=== PATIENT | male | born 1935 | race Caucasian/White ===

== ENCOUNTER → 2016-06-09 | Outpatient (CLI) | payer MEDICARE, OTHER ==
[~2016-06-09] MED LIST: ASCO100061 PO; FLUT27.5 NAE; FRS/40 PO; FURO-85 PO; PANT40TA PO; RXC5 PO; SENNTAB23 PO; SIMV40TA2 PO
[2016-06-09 14:01] LABS: HEMATOCRIT 27.8 % (42-52); MEAN CORPUSCULAR HEMOGLOBIN 28.8 pg (25-34); MEAN PLATELET VOLUME 9.4 fL (7.4-10.4); PLATELET COUNT 303 K/uL (130-400); RED BLOOD COUNT 3.09 M/uL (4.7-6.1); WHITE BLOOD COUNT 8.79 K/uL (4.8-10.8)
[2016-06-09 14:15] LABS: ALT/SGPT 15 U/L (12-78); BLOOD UREA NITROGEN 36 mg/dl (7-18); BUN/CREATININE RATIO 23.7 (10-20); CALCIUM 9.4 mg/dl (8.5-10.1); CARBON DIOXIDE 23 mmol/L (21-32); CHLORIDE 105 mmol/L (98-107); GLUCOSE 114 mg/dl (70-99); POTASSIUM 3.9 mmol/L (3.5-5.1); SODIUM 140 mmol/L (136-145)
[2016-06-09 14:18] LABS: ALB/GLOB RATIO 0.6 (0.9-2); ALKALINE PHOSPHATASE 73 U/L (45-117); AST/SGOT 19 U/L (15-37)
== END | disposition home or self-care (01) ==
LOC: C.LABSPEC 10:52
PROVIDERS: ATTEND Internal Medicine Infectious Disease
DX: A41.01 Sepsis due to Methicillin susceptible Staphylococcus aureus (principal)

== ENCOUNTER → 2016-06-16 | Outpatient (CLI) | payer MEDICARE, OTHER ==
[2016-06-16 12:25] LABS: ALT/SGPT 15 U/L (12-78); AST/SGOT 16 U/L (15-37); BLOOD UREA NITROGEN 29 mg/dl (7-18); CALCIUM 9.1 mg/dl (8.5-10.1); CARBON DIOXIDE 26 mmol/L (21-32); CHLORIDE 103 mmol/L (98-107); GLUCOSE 93 mg/dl (70-99); POTASSIUM 4.2 mmol/L (3.5-5.1); SODIUM 139 mmol/L (136-145)
[2016-06-16 12:28] LABS: ALB/GLOB RATIO 0.8 (0.9-2); ALKALINE PHOSPHATASE 63 U/L (45-117); C-REACTIVE PROTEIN 1.21 mg/dl (0-0.29)
[2016-06-17 10:07] LABS: HEMATOCRIT 28.6 % (42-52); MEAN CELL VOLUME 92.6 fL (80-100); MEAN CORPUSCULAR HEMOGLOBIN 29.8 pg (25-34); MEAN CORPUSCULAR HGB CONC 32.2 g/dl (32-36); MEAN PLATELET VOLUME 10.2 fL (7.4-10.4); PLATELET COUNT 279 K/uL (130-400); RED BLOOD COUNT 3.09 M/uL (4.7-6.1); WHITE BLOOD COUNT 8.01 K/uL (4.8-10.8)
== END | disposition home or self-care (01) ==
LOC: C.LABSPEC 10:34
PROVIDERS: ATTEND Family Medicine
DX: Z51.81 Encounter for therapeutic drug level monitoring (principal); Z79.2 Long term (current) use of antibiotics

== ENCOUNTER → 2016-07-14 | Outpatient (CLI) | payer MEDICARE ==
[2016-07-14 13:15] VITALS: BP 144/75; PULSE 82; TEMP 36.7; O2SAT 95
--- NOTE | 2016-07-14 16:37 | Radiation Oncology Follow-Up ---
Radiation Oncology Follow-Up Date of Visit Jul 14, 2016. 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 Cook is a 81-year-old male without a family history of prostate cancer. He was found to have a rising prostatespecific antigen in 2008. On 03/25/2009 prostate-specific antigen was 11.94. Patient underwent ultrasound-guided prostate biopsies on 08/27/[address] Miller. 4 out of 12 biopsies were positive. Biopsy the left base was positive for prostatic adenocarcinoma [place] grade 3+4 involving 70% of the core specimen. Biopsies from the left lateral base was positive for high-grade PIN and adenocarcinoma Viki grade 3+5 involving 50% of the core sample. Biopsy from the left mid gland was positive for adenocarcinoma [place] grade 3+4 involving 70% of the core sample. Biopsy from the left lateral mid gland was positive for prostatic carcinoma [place] grade 3+3 involving 50% of the core sample with highgrade PIN. Remaining of the biopsies were benign. [id number]. Patient opted to proceed with radical prostatectomy robotic-assisted. This was performed by Dr. Estrada on 12/30/2009. No carcinoma was identified from the bladder neck excision or the right seminal vesicle excision. The prostate gland revealed adenocarcinoma poorly differentiated. The primary Viki pattern was 3 and a secondary pattern was 5 for a score of 8. The tumor involved 5.6% of the prostate gland with an estimated volume of 1.9 mm. There was no extra prostatic extension and no seminal vesicle extension. There was evidence of perineural invasion and blood/lymphatic vessel invasion. There was no regional lymph nodes sampled. The margins were uninvolved by tumor. The final stage was therefore a pT2a pNx. [id number]. The patient recovered well from surgery. His initial postoperative prostate- specific antigen on 04/29/2011 was undetectable at less than 0.01. On 04/27/2012 prostate-specific antigen remained undetectable at less than 0.02. On 01/2013 prostate-specific antigen less than 0.02. On 05/07/2014 prostate- specific antigen was 0.03. On 05/14/2015 unfortunately the prostate-specific antigen was 0.76. With this rise in prostate -specific antigen the patient is felt to have recurrence. A CT scan for staging purposes was obtained on 05/23/2015. This showed multiple simple cysts in the right kidneys and in the left kidney. There were no other evidence of recurrent disease area to 7 mm nodule was noted at the left base. Dr. Boone discussed these findings with the patient and recommended consideration of salvage radiation. She was kind enough to ask us to see him in referral. He completed salvage radiation therapy 09/09/2015. He received 7020 cGy. Hormonal suppression was provided to Dr. Tierney's office. He has one remaining injection that will be given 10/10/2015. Interim History He was unfortunately hospitalized for 2 weeks at the end of April. He was found to have sepsis. This was treated with antibiotic therapy and he steadily recovered. The suprapubic catheter continues to be needed. She did go to [place] and had a procedure to decrease scar tissue of the urethra. He required only one four-month injection of Lupron. His last PSA was 01/09/2016 and that was less than 0.010. The suprapubic catheter is changed once a month. This will be done tomorrow Dr. Boone office. Allergies Coded Allergies: Amoxicillin (Unverified Allergy, Unknown, DOESN'T REMEMBRR, 04/29/16) HAS TOLERATED MULTIPLE DOSES OF CEFAZOLIN DURING ADMISSION APRIL 2016 Clavulanic Acid (Unverified Allergy, Unknown, DOESN'T REMEMBRR, 04/24/16) Naproxen (Verified Allergy, Unknown, UNSURE, 04/29/16) Cefazolin (Verified Adverse Reaction, Severe, VOMITING BLOOD, 05/05/16) Home Medications Scheduled Ascorbic Acid (Ascorbic Acid), 1,000 MG PO BID Fluticasone Furoate (Veramyst), 2 SPRY CHACORTA DAILY Furosemide (Lasix), 40 MG PO Q2D Furosemide (Lasix), 20 MG PO Q2D Pantoprazole Sodium (Protonix), 1 TAB PO BID Simvastatin (Zocor), 40 MG PO QPM Scheduled PRN Oxycodone HCl (Oxycodone HCl), 5 MG PO QID PRN for Pain Sennosides-Docusate Sodium (Stool Softener), 1 TAB PO BID PRN for Constipation Review of Systems Gastrointestinal: Symptoms: Constipation GI Comments: occ constipation Oral: Symptoms: No Problems Respiratory: Symptoms: WNL Urinary: Symptoms: Espino Catheter Comments: supra pubic catheter , voids some on his own when straining Skin: Symptoms: No Problems Other Skin Symptoms: "has has a lot of skin cancer over the years " Physical Exam Vital Signs Date Time Temp Pulse Resp B/P Pulse Ox O2 Delivery O2 Flow Rate FiO2 07/14/16 13:15 36.7 82 20 144/75 95 Pain: Pain Onset: 16 Pain Duration: gets worse at times Side: Bilateral Patient Pain Scale: 0 - 10 Initial Pain Intensity: 0.0 Pain Description: Soreness Additional Comments: pinches General Appearance: no apparent distress Eyes: normal inspection, EOMI ENT: normal ENT inspection, hearing grossly normal Respiratory/Chest: lungs clear, no respiratory distress, no accessory muscle use Cardiovascular: regular rate, rhythm, no gallop, no murmur Abdomen: non tender, soft, + pertinent finding (superior catheter in place) Anal / Rectum: Normal sphincter tone. Prostate bed is flat. No rectal masses no rectal bleeding. Extremities: no pedal edema Neurologic/Psychiatric: no motor/sensory deficits, alert, normal mood/affect Skin: warm/dry Lymphatic: no adenopathy Laboratory Studies Test 04/24/16 11:45 04/24/16 11:55 04/24/16 11:58 04/24/16 12:30 Pro-B-Type Natriuretic Peptide 933 pg/ml (0-1800) Lipase 693 U/L (73-393) Procalcitonin 5.47 ng/mL (0-0.5) Thyroid Stimulating Hormone (TSH) 0.780 uIu/ml (0.300-4.500) POC Lactic Acid Venous 2.03 mmol/L (0.90-1.70) POC Hemoglobin 14.3 g/dl (14.0-18.0) POC Hematocrit 42 % (42-52) POC Sodium 124 mEq/L (135-144) POC Potassium 2.3 mEq/L (3.3-5.0) POC Chloride 85 mEq/L (101-112) POC Total CO2 30 mEq/l (24-31) POC Blood Urea Nitrogen 45 mg/dl (7-18) POC Creatinine 2.0 mg/dl (0.6-1.3) POC Glucose 141 mg/dl (70-99) POC Ionized Calcium (Earnest) 1.10 mmol/l (1.12-1.32) Urine Color DK YELLOW Urine Appearance CLOUDY (CLEAR) Urine pH 5.5 (4.5-7.5) Urine Specific [place] 1.019 (1.000-1.030) Urine Protein 3+ (NEG) Urine Glucose (UA) NEG (NEG) Urine Ketones TRACE (NEG) Urine Occult Blood 3+ (NEG) Urine Nitrite POS (NEG) Urine Bilirubin NEG (NEG) Urine Urobilinogen NEG (NEG) Urine Leukocyte Esterase SMALL (NEG) Urine WBC (Auto) 10-30 /hpf (0-5) Urine RBC (Auto) 5-10 /hpf (0-4) Urine Hyaline Casts (Auto) 1-5 /lpf (0-5) Urine Epithelial Cells (Auto) >30 /lpf (0-5) Urine Bacteria (Auto) 1+ (NEG) Urine Renal Epithelial Cells /lpf (0-5) Urine Crystals AMORPHOUS SEDIMENT (NONE Urine Pathogenic Casts 10-20 GRANULAR CASTS /lpf (0) Urine Yeast (Auto) (NONE PRSENT) Test 04/24/16 22:00 04/25/16 03:40 04/25/16 22:20 04/26/16 06:20 Urine Color ORANGE Urine Appearance CLOUDY (CLEAR) Urine pH 6.0 (4.5-7.5) Urine Specific [place] 1.023 (1.000-1.030) Urine Protein 3+ (NEG) Urine Glucose (UA) NEG (NEG) Urine Ketones TRACE (NEG) Urine Occult Blood 3+ (NEG) Urine Nitrite POS (NEG) Urine Bilirubin NEG (NEG) Urine Urobilinogen NEG (NEG) Urine Leukocyte Esterase SMALL (NEG) Urine WBC (Auto) >30 /hpf (0-5) Urine RBC (Auto) 10-30 /hpf (0-4) Urine Hyaline Casts (Auto) 5-10 /lpf (0-5) Urine Epithelial Cells (Auto) 10-20 /lpf (0-5) Urine Bacteria (Auto) NEG (NEG) Urine Crystals AMORPHOUS SEDIMENT (NONE Urine Pathogenic Casts See comments /lpf (0) Triglycerides Level 139 mg/dl (0-150) Cholesterol Level 106 mg/dl (0-200) HDL Cholesterol 24 mg/dl LDL Cholesterol, Calculated 54 mg/dl VLDL Cholesterol, Calculated 28 mg/dl Cholesterol/HDL Ratio 4.4 Lipase 210 U/L (73-393) Creatine Kinase MB 15.4 ng/ml (0.5-3.6) Creatine Kinase MB Ratio 0.4 (0-3.0) Troponin I 0.112 ng/ml (0-0.045) Echinocytes 1+ Test 04/27/16 14:17 04/27/16 18:00 04/28/16 07:34 04/28/16 15:55 Osmolality 275 mOsm/kg (280-300) Lactic Acid Level 2.2 mmol/L (0.4-2.0) 1.1 mmol/L (0.4-2.0) Urine Osmolality 524 mOms/kg (500-800) Urine Random Sodium 7 mEq/L Hepatitis A IgM Antibody NON-REACTIVE (NON-REACTIVE) Hepatitis B Surface Antigen NEG (NEG) Hepatitis B Core IgM Antibody NON-REACTIVE (NON-REACTIVE) Hepatitis C Antibody NEG (NEG) Test 04/29/16 15:20 04/30/16 05:18 05/01/16 03:40 05/03/16 05:09 Creatine Kinase MB 1.7 ng/ml (0.5-3.6) Creatine Kinase MB Ratio 1.0 (0-3.0) Troponin I < 0.015 ng/ml (0-0.045) Magnesium Level 2.0 mg/dl (1.8-2.4) Direct Bilirubin 0.4 mg/dl (0-0.2) 0.3 mg/dl (0-0.2) Red Blood Cell Morphology Unremarkable Phosphorus Level 5.4 mg/dl (2.5-4.9) Test 05/03/16 15:20 05/04/16 05:00 05/05/16 07:05 05/05/16 16:10 Magnesium Level 2.3 mg/dl (1.8-2.4) Phosphorus Level 5.5 mg/dl (2.5-4.9) PTT 59.7 SECONDS (21.0-31.0) Partial Thromboplastin Ratio 2.3 Gastric Fluid pH 3 Gastric Fluid Occult Blood POS (NEG) Stool Occult Blood POSITIVE (NEGATIVE) Test 05/06/16 06:40 05/07/16 06:18 05/08/16 06:40 05/26/16 11:30 Immature Granulocyte % (Auto) 1.4 % 0.5 % White Blood Count 11.74 K/uL (4.8-10.8) 8.18 K/uL (4.8-10.8) Red Blood Count 2.93 M/uL (4.7-6.1) 2.68 M/uL (4.7-6.1) Hemoglobin 8.5 g/dL (14.0-18.0) 7.8 g/dL (14.0-18.0) Hematocrit 25.6 % (42-52) 24.5 % (42-52) Mean Corpuscular Volume 87.4 fL (80-100) 91.4 fL (80-100) Mean Corpuscular Hemoglobin 29.0 pg (25-34) 29.1 pg (25-34) Mean Corpuscular Hemoglobin Concent 33.2 g/dl (32-36) 31.8 g/dl (32-36) Platelet Count 216 K/uL (130-400) 309 K/uL (130-400) Mean Platelet Volume 8.5 fL (7.4-10.4) 9.4 fL (7.4-10.4) Neutrophils (%) (Auto) 74.6 % 71.3 % Lymphocytes (%) (Auto) 15.6 % 14.9 % Monocytes (%) (Auto) 7.8 % 11.7 % Eosinophils (%) (Auto) 0.3 % 1.1 % Basophils (%) (Auto) 0.3 % 0.5 % Neutrophils # (Auto) 8.74 K/uL (1.4-6.5) 5.83 K/uL (1.4-6.5) Lymphocytes # (Auto) 1.83 K/uL (1.2-3.4) 1.22 K/uL (1.2-3.4) Monocytes # (Auto) 0.92 K/uL (0.11-0.59) 0.96 K/uL (0.11-0.59) Eosinophils # (Auto) 0.04 K/uL (0-0.5) 0.09 K/uL (0-0.5) Basophils # (Auto) 0.04 K/uL (0-0.2) 0.04 K/uL (0-0.2) Immature Granulocyte # (Auto) 0.17 K/uL (0.00-0.02) 0.04 K/uL (0.00-0.02) Red Blood Cell Morphology Unremarkable PTT 30.8 SECONDS (21.0-31.0) Partial Thromboplastin Ratio 1.2 Est Creatinine Clear Calc Drug Dose 50.1 ml/min 47.2 ml/min Prothrombin Time 12.0 SECONDS (9.0-12.0) 11.8 SECONDS (9.0-12.0) Prothrombin Time INR 1.1 (0.9-1.1) 1.1 (0.9-1.1) Test 06/09/16 12:30 06/16/16 11:45 06/17/16 11:45 07/14/16 13:57 White Blood Count 8.79 K/uL (4.8-10.8) 8.01 K/uL (4.8-10.8) Red Blood Count 3.09 M/uL (4.7-6.1) 3.09 M/uL (4.7-6.1) Hemoglobin 8.9 g/dL (14.0-18.0) 9.2 g/dL (14.0-18.0) Hematocrit 27.8 % (42-52) 28.6 % (42-52) Mean Corpuscular Volume 90.0 fL (80-100) 92.6 fL (80-100) Mean Corpuscular Hemoglobin 28.8 pg (25-34) 29.8 pg (25-34) Mean Corpuscular Hemoglobin Concent 32.0 g/dl (32-36) 32.2 g/dl (32-36) RDW Standard Deviation 50.5 fL (36.4-46.3) 52.3 fL (36.4-46.3) RDW Coefficient of Variation 15.4 % (11.5-14.5) 15.5 % (11.5-14.5) Platelet Count 303 K/uL (130-400) 279 K/uL (130-400) Mean Platelet Volume 9.4 fL (7.4-10.4) 10.2 fL (7.4-10.4) Erythrocyte Sedimentation Rate 46 mm/hr (0-14) 43 mm/hr (0-14) Sodium Level 140 mmol/L (136-145) 139 mmol/L (136-145) Potassium Level 3.9 mmol/L (3.5-5.1) 4.2 mmol/L (3.5-5.1) Chloride Level 105 mmol/L (98-107) 103 mmol/L (98-107) Carbon Dioxide Level 23 mmol/L (21-32) 26 mmol/L (21-32) Anion Gap 12.0 mmol/L (3-11) 10.0 mmol/L (3-11) Blood Urea Nitrogen 36 mg/dl (7-18) 29 mg/dl (7-18) Creatinine 1.50 mg/dl (0.60-1.40) 1.30 mg/dl (0.60-1.40) Estimated GFR () 50.2 59.7 Estimated GFR (Non- 43.3 51.5 BUN/Creatinine Ratio 23.7 (10-20) 22.0 (10-20) Random Glucose 114 mg/dl (70-99) 93 mg/dl (70-99) Calcium Level 9.4 mg/dl (8.5-10.1) 9.1 mg/dl (8.5-10.1) Total Bilirubin 0.4 mg/dl (0.2-1) 0.4 mg/dl (0.2-1) Aspartate Amino Transferase (AST) 19 U/L (15-37) 16 U/L (15-37) Alanine Aminotransferase (ALT) 15 U/L (12-78) 15 U/L (12-78) Alkaline Phosphatase 73 U/L (45-117) 63 U/L (45-117) Total Creatine Kinase 73 U/L (39-308) 71 U/L (39-308) C-Reactive Protein 3.30 mg/dl (0-0.29) 1.21 mg/dl (0-0.29) Total Protein 7.4 gm/dl (6.4-8.2) 7.2 gm/dl (6.4-8.2) Albumin 2.9 gm/dl (3.4-5.0) 3.1 gm/dl (3.4-5.0) Globulin 4.5 gm/dl (2.5-4.0) 4.1 gm/dl (2.5-4.0) Albumin/Globulin Ratio 0.6 (0.9-2) 0.8 (0.9-2) Prostate Specific Antigen < 0.010 ng/ml (0.000-4.000) Assessment & Plan PSA was drawn today. He'll be notified as to results. He'll see Dr. Boone tomorrow for the change of the suprapubic catheter. At times he is able to void on his own. I've asked him to review with her possible clamping of the tube intermittently to see if he can possibly void on his own. We asked him to return to our office in 1 year. He may called yesterday questions or concerns in the interim. Total Time In Follow-Up I spent 15 minutes speaking to the patient performing examination. I spent 15 minutes reviewing information and completing this note. Copy To Parker Duenas D.O.; Marcie Boone MD
== END | disposition home or self-care (01) ==
LOC: C.ONC 13:05
PROVIDERS: ATTEND Radiology Radiation Oncology
DX: C61 Malignant neoplasm of prostate (principal)

== ENCOUNTER → 2016-07-22 | Outpatient (CLI) | payer MEDICARE ==
--- NOTE | 2016-07-22 14:55 | DIAGNOSTIC IMAGING REPORT ---
THORACIC SPINE 3 VIEWS HISTORY: DORSALGIA, UNSPECIFIED COMPARISON: Chest CT 04/30/2016. FINDINGS: There is no fracture. No subluxation. Paraspinal soft tissues are unremarkable. Minimal levoscoliosis of the midthoracic spine. Paraspinal soft tissues are unremarkable. Mild to moderate degenerative disc disease at T8-T9 and within the lower thoracic spine. IMPRESSION: No fracture or subluxation within the thoracic spine. Mild to moderate degenerative disc disease within the mid to lower thoracic spine. Electronically signed by: Pranay Kaufman M.D. 07/22/2016 2:54 PM Dictated Date/Time: 07/22/2016 2:50 PM
--- NOTE | 2016-07-22 14:55 | DIAGNOSTIC IMAGING REPORT ---
L-SPINE MIN 4 VIEWS ROUTINE CLINICAL HISTORY: Dorsalgia. COMPARISON: Lumbar spine radiographs April 25, 2016. FINDINGS: An IVC filter is incidentally noted. This extensive atherosclerotic calcification of the abdominal aorta. There is mild levoscoliosis of the lumbar spine. No acute fracture is identified on this exam. Moderate multilevel degenerative disc disease and facet arthrosis is present. The appearance of the lumbar spine is similar to exam of April 25, 2016. Disc space narrowing, osteophytosis and vacuum disc phenomenon is noted at multiple levels. IMPRESSION: 1. No acute lumbar spine fracture or subluxation. 2. Moderate multilevel degenerative disc disease and facet arthrosis of the lumbar spine. No change since exam of April 25, 2016. Electronically signed by: Enrico Powell M.D. 07/22/2016 2:53 PM Dictated Date/Time: 07/22/2016 2:52 PM
== END | disposition home or self-care (01) ==
LOC: C.RAD1850 14:20
PROVIDERS: ATTEND Student in an Organized Health Care Education/Training Program
DX: M54.9 Dorsalgia, unspecified (principal); M51.36 Other intervertebral disc degeneration, lumbar region; M51.34 Other intervertebral disc degeneration, thoracic region

== ENCOUNTER → 2017-07-13 | Outpatient (CLI) | payer MEDICARE ==
[~2017-07-13] MED LIST changes: +LISI-725 PO; +NAPR1TAB9 PO; +POLY335019 PO; +POTA20TA16 PO; +VITACAP26
[2017-07-13 13:23] VITALS: BP 135/69; PULSE 73; TEMP 36.6; O2SAT 100
--- NOTE | 2017-07-13 14:42 | Radiation Oncology Follow-Up ---
Radiation Oncology Follow-Up Date of Visit Jul 13, 2017. Reason For Visit Annual follow-up Radiation Completion Date 09/09/15 Diagnosis (1) 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) Status: Resolved Onset Date: 08/27/2009 Stage: ll Permanent Comment: Status post completion of salvage radiation therapy 2015 received 7020 cGy Urethral stricture with acute urinary retention Status post suprapubic cystostomy Last Edited By: Rachel Thompson on Jan 09, 2016 16:14 History of Present Illness Mr. Cook is a 81-year-old male without a family history of prostate cancer. He was found to have a rising prostatespecific antigen in 2008. On 03/25/2009 prostate-specific antigen was 11.94. Patient underwent ultrasound-guided prostate biopsies on 08/27/[address] Miller. 4 out of 12 biopsies were positive. Biopsy the left base was positive for prostatic adenocarcinoma [place] grade 3+4 involving 70% of the core specimen. Biopsies from the left lateral base was positive for high-grade PIN and adenocarcinoma [place] grade 3+5 involving 50% of the core sample. Biopsy from the left mid gland was positive for adenocarcinoma [place] grade 3+4 involving 70% of the core sample. Biopsy from the left lateral mid gland was positive for prostatic carcinoma [place] grade 3+3 involving 50% of the core sample with highgrade PIN. Remaining of the biopsies were benign. [id number]. Patient opted to proceed with radical prostatectomy robotic-assisted. This was performed by Dr. Estrada on 12/30/2009. No carcinoma was identified from the bladder neck excision or the right seminal vesicle excision. The prostate gland revealed adenocarcinoma poorly differentiated. The primary Viki pattern was 3 and a secondary pattern was 5 for a score of 8. The tumor involved 5.6% of the prostate gland with an estimated volume of 1.9 mm. There was no extra prostatic extension and no seminal vesicle extension. There was evidence of perineural invasion and blood/lymphatic vessel invasion. There was no regional lymph nodes sampled. The margins were uninvolved by tumor. The final stage was therefore a pT2a pNx. [id number]. The patient recovered well from surgery. His initial postoperative prostate- specific antigen on 04/29/2011 was undetectable at less than 0.01. On 04/27/2012 prostate-specific antigen remained undetectable at less than 0.02. On 01/2013 prostate-specific antigen less than 0.02. On 05/07/2014 prostate- specific antigen was 0.03. On 05/14/2015 unfortunately the prostate-specific antigen was 0.76. With this rise in prostate -specific antigen the patient is felt to have recurrence. A CT scan for staging purposes was obtained on 05/23/2015. This showed multiple simple cysts in the right kidneys and in the left kidney. There were no other evidence of recurrent disease area to 7 mm nodule was noted at the left base. Dr. Boone discussed these findings with the patient and recommended consideration of salvage radiation. She was kind enough to ask us to see him in referral. He completed salvage radiation therapy 09/09/2015. He received 7020 cGy. Hormonal suppression was provided to Dr. Tierney's office. He has one remaining injection that will be given 10/10/2015. Interim History He continues to be followed closely by Dr. Boone. AUA evaluation and epic questionnaire were not completed. He has a suprapubic catheter. He is seen once a month for changing of the catheter. He has irregular bowel habits and this is unchanged for many years. He uses Mirilax on a as needed basis. He completed the six-month recommendation for hormone suppression. He has had recheck PSAs at Dr. Boone office. He had a PSA 05/19/2017 and that was less than 0.02. Allergies Coded Allergies: Amoxicillin (Unverified Allergy, Unknown, DOESN'T REMEMBRR, 04/29/16) HAS TOLERATED MULTIPLE DOSES OF CEFAZOLIN DURING ADMISSION APRIL 2016 Clavulanic Acid (Unverified Allergy, Unknown, DOESN'T REMEMBRR, 04/24/16) Naproxen (Verified Allergy, Unknown, UNSURE, 04/29/16) Cefazolin (Verified Adverse Reaction, Severe, VOMITING BLOOD, 05/05/16) Home Medications Scheduled Ascorbic Acid (Ascorbic Acid), 1,000 MG PO BID Fluticasone Furoate (Veramyst), 2 SPRY CHACORTA DAILY Furosemide (Lasix), 40 MG PO Q2D Furosemide (Lasix), 20 MG PO Q2D Lisinopril (Zestril), 20 MG PO DAILY Pantoprazole Sodium (Protonix), 1 TAB PO BID Polyethylene Glycol 3350 (Miralax), 17 GM PO DAILY Potassium Ext Rel (Klor-Con), 20 MEQ PO DAILY Simvastatin (Zocor), 40 MG PO QPM Scheduled PRN Naproxen (Aleve), 220 MG PO for Pain Miscellaneous Medications Vitamins C & E (Vitamin C) Review of Systems Gastrointestinal: Symptoms: WNL GI Comments: occ constipation Oral: Symptoms: No Problems Respiratory: Symptoms: WNL Urinary: Symptoms: Espino Catheter Comments: has a superpubic catheter Skin: Symptoms: No Problems Other Skin Symptoms: "has has a lot of skin cancer over the years " Physical Exam Vital Signs Date Time Temp Pulse Resp B/P (MAP) Pulse Ox O2 Delivery O2 Flow Rate FiO2 07/13/17 13:23 36.6 73 18 135/69 100 Fatigue: None General Appearance: no apparent distress Eyes: normal inspection, EOMI ENT: normal ENT inspection, hearing grossly normal Respiratory/Chest: lungs clear, no respiratory distress, no accessory muscle use Cardiovascular: regular rate, rhythm, no gallop, no murmur Abdomen: non tender, soft, no organomegaly Anal / Rectum: Decreased sphincter tone. External and internal hemorrhoids. Prostate bed is flat. There are no masses. There is no rectal bleeding. Extremities: no pedal edema Neurologic/Psychiatric: no motor/sensory deficits, alert, normal mood/affect Skin: warm/dry Pain Management Patient Reports Pain: Yes Side: Bilateral Pain Location: Toe Patient Preferred Pain Scale: 0 - 10 Initial Pain Intensity: 2.0 Pain Management Plan Pain level is low. This is managed with [id number] medications. There is no pain management required by our office. Laboratory Laboratory Results: were reviewed Laboratory Comments: Reviewed in the interim history. Pathology Pathology Results: not applicable Imaging Imaging Studies: not applicable Assessment & Plan Plan: Continue follow-up PSAs. He has a recheck point with Dr. Boone in October. He'll have a recheck PSA prior to that visit. Today we reviewed his PSA levels. We discussed that previously there would have been some effect on the level due to the hormone suppression. We asked him to return to our office in 1 year. He may call if he has any questions or concerns in the interim. Total Time In Follow-Up I spent 20 minutes speaking to the patient performing examination. I spent 15 minutes reviewing information in completing this note. Copy To Parker Duenas D.O.; Marcie Boone MD
== END | disposition home or self-care (01) ==
LOC: C.ONC 13:13
PROVIDERS: ATTEND Physician Assistant Medical
DX: Z08 Encounter for follow-up examination after completed treatment for malignant neoplasm (principal); Z92.3 Personal history of irradiation; Z85.46 Personal history of malignant neoplasm of prostate

== ENCOUNTER 2022-07-26 08:52 | Inpatient (IN) ==
--- NOTE | 2022-07-26 10:02 | CT Scan Report ---
CT SCAN OF THE BRAIN WITHOUT IV CONTRAST CLINICAL HISTORY: Difficulty with ambulation. COMPARISON STUDY: CT of the brain dated 02/04/2020. TECHNIQUE: Unenhanced axial CT scan of the brain is performed from the vertex to the skull base. A do se lowering technique was utilized adhering to the principles of ALARA. CT DOSE: 614.27 mGy.cm FINDINGS: Brain parenchyma: There is age-related involutional change noting mild subcortical and periventricula r microangiopathic disease. There is no hemorrhage, mass effect, or evidence of acute territorial isc hemia by CT criteria. Feliz-white matter differentiation is preserved. No extra-axial fluid collection is seen. Ventricles, sulci, cisterns: Prominent secondary to involutional change. Intracranial vasculature: There is atherosclerotic calcification of the cavernous carotid and vertebr al arteries. Calvarium: Unremarkable. Sinuses and mastoids: The visualized paranasal sinuses are clear. The mastoid air cells are well pneu matized. Cerumen is noted in the left external auditory canal. Orbits: The bony orbits are grossly intact. There are bilateral ocular lens implants. IMPRESSION: There is no hemorrhage, mass effect, or evidence of acute territorial ischemia by CT graeme madison. ACT 112: Negative or not required by law. Electronically signed by: Elver Xiao M.D. 07/26/2022 9:59 AM
[2022-07-26 10:05] LABS: Hematocrit (blood only) 40.4 % (42.0-52.0); Mean Corpuscular Hemoglobin 32.1 pg (25.0-34.0); Mean Corpuscular Hgb Conc 32.2 g/dL (32.0-36.0); Mean Corpuscular Volume 99.8 fL (80.0-100.0); Mean Platelet Volume 10.4 fL (9.4-12.4); Platelet Count 253 K/uL (130-400); RDW Coefficient of Variation 13.8 % (11.5-14.5); RDW Standard Deviation 50.1 fL (36.4-46.3); Red Blood Count 4.05 M/uL (4.70-6.10)
[2022-07-26 10:17] LABS: INR 1.1 (0.9-1.1); Prothrombin Time 11.3 Seconds (9.0-12.0)
[2022-07-26 10:19] LABS: Albumin Globulin Ratio 1.4 (0.9-2); Albumin Level 4.2 gm/dl (3.4-5.0); BUN Creatinine Ratio 22.5 (10-20); Bilirubin Direct 0.1 mg/dl (0-0.2); Bilirubin,Total 0.9 mg/dl (0.2-1.0); Calcium 9.3 mg/dl (8.5-10.1); Creatinine Clr Calc Pharmacy 22.5 ml/min; Est GFR (African American) 27.8 ml/min; Total Protein 7.2 gm/dl (6.0-8.3); Troponin I High Sensitivity 8.8 pg/ml (0-20)
--- NOTE | 2022-07-26 10:33 | XRay Report ---
TWO VIEW CHEST CLINICAL HISTORY: Generalized weakness. FINDINGS: PA and lateral chest radiographs are compared to study dated 02/04/2020 and correlated with chest CT dated 04/30/2016. The heart is enlarged noting atherosclerotic calcification of the thoracic aorta. The pulmonary vasculature is noncongested. Emphysema and chronic interstitial thickening is s imilar to previous. No airspace consolidation or pleural effusion is identified. Scarring/atelectasis is noted at the lung bases. There is no pneumothorax. The skeletal structures are osteopenic. The [place] thorax appears intact. An IVC filter is partially visualized in the upper abdomen. IMPRESSION: Cardiomegaly and emphysema with no acute cardiopulmonary abnormality identified. ACT 112: Negative or not required by law. Electronically signed by: Elver Xiao M.D. 07/26/2022 10:30 AM
[2022-07-26 10:52] LABS: Basophils # (auto) 0.39 K/uL (0-0.2); Basophils % (auto) 0.6 %; Eosinophils # (auto) 0.11 K/uL (0-0.50); Eosinophils % (auto) 0.2 %; Immature Granulocytes # (auto) 0.56 K/uL (0.01-0.20); Immature Granulocytes % (auto) 0.9 %; Lymphocytes % (auto) 63.2 %; Monocytes # (auto) 5.04 K/uL (0.11-0.59); Monocytes % (auto) 8.4 %; Neutrophils % (auto) 26.7 %; Polychromasia 1+; Smudge Cells Present
--- NOTE | 2022-07-26 11:06 | Ultrasound Report ---
ULTRASOUND LEFT LOWER EXTREMITY VENOUS CLINICAL HISTORY: Left leg pain and swelling. COMPARISON STUDY: Bilateral lower extremity venous ultrasound dated 04/24/2016 TECHNIQUE: Real-time, grayscale, and color Doppler sonography of the deep veins of the left lower ext remity was performed from the inguinal crease to the calf. Compression and augmentation were utilized . FINDINGS: There is occlusive deep venous thrombosis identified in the popliteal vein. This extends in the calf within one of the posterior tibial veins. The remaining visualized calf vessels appear bartlett nt. The common femoral and superficial femoral veins are patent and normally compressible. The greate r saphenous vein and the profunda femoris vein at the junction with the common femoral vein are clear . IMPRESSION: Occlusive deep venous thrombosis is seen within the popliteal vein. This extends into the calf. ACT 112: Negative or not required by law. Electronically signed by: Elver Xiao M.D. 07/26/2022 11:05 AM
--- NOTE | 2022-07-26 11:50 | History & Physical Report ---
Date of Service July 26, 2022 Assessment & Plan (1) Left leg DVT: Plan: Left leg DVT, acute 1 week of worsening left leg swelling and pain with weightbearing, found to have popliteal DVT with extension into the calf Patient has history of CLL and polycythemia. Increased coagulation risk 2/2 polycythemia Heparin GTT ordered Discussed with Dr. Morris, reasonable to target for a twice daily DOAC versus warfarin with bridge on discharge. Do not use once daily DOAC dosing Sensation and strength of the lower extremities are intact (2) BASIM (acute kidney injury): Plan: Creatinine baseline appears approximately 1.4, admitting creatinine 2.36 Patient usually avoids around 3000 mL overnight (does this because he drains his suprapubic bag once and usually almost fell again by morning) Last night patient with significantly decreased output, only 200 cc and elevated creatinine suggestive of ARF CT-A/P: 1. The inferior vena cava and iliac arteries appear hyperdense and are distended below the IVC filter with mild surrounding infiltration. These findings are highly suspicious for extensive pelvic deep venous thrombosis. Consider sonographic correlation.2. The kidneys demonstrate cortical atrophy and are without hydronephrosis.3. The bladder is decompressed around a suprapubic catheter. The wall appears thickened and there is surrounding infiltration. Correlate with urinalysis. 4. Mild cardiomegaly and emphysema.5. Cholelithiasis.6. Additional findings as above. IVC filter is below the level of the renal artery. Bladder is decompressed, no signs of obstruction. UA is pending. No renal enhancement. Unclear etiology of BASIM/ARF Nephrology consulted, anticoagulated for his clot as above, and received IVF. (3) [place] filter in place: Plan: Patient reports this was placed while he was septic in the ICU from a urinary tract infection and had complications with both clots and bleeding due to sepsis. Reports that outside of this he has never had any issues with bleeding or anemia. Patient with DVT as noted above, anticoagulation started. Risk of bleeding discussed with patient. (4) CLL (chronic lymphocytic leukemia): Plan: WBC 60.3, ANC 16, hemoglobin 13 Plt 253 Discussed with hematology/oncology and patient's outpatient oncologist. WBC is reasonable for patient, has not been requiring treatment and is unlikely to contribute significantly to viscosity at this level. As long as ANC level is not grossly elevated may continue to watch and have outpatient. No evidence of acute conversion at this time. (5) Polycythemia: Plan: Hemoglobin 13 on admission Continue hydroxyurea With increased risk for clots, being treated for DVT as above (6) H/O radical prostatectomy: Plan: With residual scar tissue and suprapubic catheter in place Suprapubic catheter draining light yellow urine, decreased urine output and BASIM/ARF as noted (7) Hypertension: Plan: Lisinopril held for ARF Amlodipine temporarily held for mild hypotension, resume tomorrow's normal (8) History of CVA (cerebrovascular accident): Plan: History of CVA with dysarthria and right lower extremity weakness at presentation. He is on Plavix monotherapy at this time. Reports that had right leg weakness which gradually improved and normalized over 1 year of therapy. No residual speech deficits. Plavix continued History of Present Illness Primary Care Provider: Parker Duenas DO Topher is an 87-year-old male with a past medical history of CLL, hypertension, hyperlipidemia, prostate cancer s/p prostatectomy, past DVT with Kaushal filter placement which was not removed subsequently, and CKD who presents with ARF and weakness. 1 week ago L left swollen, pain in thigh and calf. Was having pain spreading across lower waist and back over the next few days. Minimal pain sitting, more pain when trying to ambulate More fatigued over the last week This morning tried to walk across the room 'and damn near fell down' so he cam ein for evaluation Quit smoking 35 years ago No long trips/travel 6 years ago had sepsis with blood clots in both legs Has a kaushal filter, was not removed. Thinks was done with Dr. Cota Is not sure why they chose a filter instead of a anticoagulant No problems with bleeding. 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 Had a Stroke last january, no residual deficits. Presented with dysarthria and R weakness. R leg improved over a year, speech normalized. On plaavix after being flown to [place]. Has a history of CLL. Polycythemia and leukocytosis was noted while at [place]. Sees Dr. Morris and was placed on the hydroxyuria. has discussed this w/ Dr. Alexandra and unless was >200 pt reports was going to monitor. Reports has brisk drainage from his catheter bag which is usually emptied 1x overnight and nearly full again over the morning. normally ~3500mL output, haroon [place] had ~200cc of output overall overnight which is very unusual for him.Per pt norm of No fevers or chills. [place] a little chilly this AM but no shaking chills no night sweats no SoB, dyspnea, chest pain, or chest pressure Medical History: Reviewed Medications: Reviewed Surgical History: Reviewed Allergies: Reviewed Social History: Former smoker, no use in 35 yeras. No etoh. Code Status: DNR/DNI Allergies Allergy/AdvReac Type Severity Reaction Status Date / Time No Known Allergies Allergy Verified 07/26/22 10:59 Home Medications Medication Instructions Recorded Confirmed Type acetaminophen 650 mg 1,300 mg PO Q12H PRN Pain 02/04/20 07/26/22 History tablet,extended release ascorbic acid (vitamin C) 1,000 mg 1,000 mg PO BID 02/04/20 07/26/22 History tablet fluticasone propionate 50 2 spray intranasal QAM 02/04/20 07/26/22 History mcg/actuation nasal spray,suspension lisinopril 20 mg tablet 20 mg PO QAM 02/04/20 07/26/22 History amlodipine 2.5 mg tablet 2.5 mg PO HS 05/03/21 07/26/22 History clopidogrel 75 mg tablet 75 mg PO QAM 05/03/21 07/26/22 History folic acid 1 mg tablet 2 mg PO QAM 05/03/21 07/26/22 History hydroxyurea 500 mg capsule 1,000 mg PO QDL 05/03/21 07/26/22 History rosuvastatin 20 mg tablet 20 mg PO HS 05/03/21 07/26/22 History trospium 20 mg tablet 20 mg PO BID 05/03/21 07/26/22 History Past Med/Surg History Medical History (Updated 07/26/22 @ 12:34 by Dmitriy Mckay MD) Kaushal filter in place Hypertension Leukocytosis MSSA (methicillin susceptible Staphylococcus aureus) septicemia 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) (08/27/09) "Status post completion of salvage radiation therapy 09/09/2015 received 7020 cGy Urethral stricture with acute urinary retention Status post suprapubic cystostomy" On 10/11/15 10:22 Rachel Jarrell Donna wrote "Status post completion of salvage radiation therapy 09/09/2015 received 7020 cGy Urethral stricture with acute urinary retention Plan for suprapubic cystostomy" On 09/13/15 13:18 Rachel Thompson wrote "Status post completion of salvage radiation therapy 09/09/2015 received 7020 cGy" Pulmonary emboli Rising PSA level Sepsis Skin cancer Surgical History H/O radical prostatectomy No history of previous surgery S/P appendectomy Family History Other No significant family history Social History Smoking Status: Former smoker Feels Safe at Home: Yes Seatbelt Use: always Review of Systems Review of Systems: All systems reviewed & are unremarkable except as noted in HPI & below Physical Exam Physical Exam: General: A&Ox3. NAD. Cooperative. HEENT: Atraumatic, normocephalic. PERLAA. Pulm: CTAB A&P. -wheezes, -rales, -rhonchi. Symmetrical chest rise. No increased work of breathing. No respiratory distress. Cardiac: RRR, -mrg. Radial pulses intact and symmetrical. Abdominal: Nontender, nondistended, soft. BS present. Ext: LLE pitting edema. Sensation intact to soft touch bilat. Results & Data Results & Data ([facility]) Vital Signs (Past 12 Hours) Vital Signs Temp Pulse Resp BP Pulse Ox O2 Del Method 07/26/22 09:38 77 07/26/22 09:04 36.6 C 81 20 118/51 L 98 Room Air PG Care Time/CCT Total # of Minutes Spent Total Time Spent with Patient: Total time spent is greater than 50% in coordination of care (as documented) at patient's floor/unit and/or counseling patient: Coding Level of Care Code 64364 INT INP/OBS CARE 3/75MIN Diagnoses Left leg DVT I82.402 BASIM (acute kidney injury) N17.[address] Z95.828 CLL (chronic lymphocytic leukemia) C91.10 Polycythemia D75.1 H/O radical prostatectomy Z90.79 Hypertension I10 History of CVA (cerebrovascular accident) Z86.73
[2022-07-26] MEDS ORDERED: Heparin IV Adult Wt-Based Standard WITH Bolus Protocol IV STA (12:21)
--- NOTE | 2022-07-26 12:22 | Emergency Department Note ---
History of Present Illness General Chief complaint: Leg Injury/Pain Stated complaint: BILAT. LEG PAIN Time Seen by Provider: 07/26/22 08:57 History of Present Illness Maximum Pain Intensity: 6 This 87-year-old male with a history of CVA, previous DVTs/PE, polycythemia vera, CLL, Kaushal filter placement, elevated lipids, hypertension, sepsis, prostate cancer, and skin cancer, presents today by ambulance, for evaluation of generalized weakness. He states that over the last week he has had increasing weakness. He states that he cannot walk from a chair in the front of his house, to the back of his house. He could prior to the last week. He denies any pain. No shortness of breath. He does note swelling in the left leg that developed approximately 4-5 days ago. He believes it has become worse. He does have a history of clot after sepsis, and does have a Paton filter in place. Denies any redness or warmth to the left leg. No calf pain. He denies any chest pain, shortness of breath, nausea, vomiting, or abdominal pain. No dizziness, headache, or fatigue. He describes a belt-like pattern of pain in his low back that has developed over the last several days. No prior history of similar discomfort. He is a somewhat poor historian, but does state that he s ees Dr. Mroris for management of CLL. He believes he has an appointment next month. He recently had 6 suspicious lesions removed from his skin and states they are healing fine as far as he is aware. There were 3 on his scalp and 3 on his back. His accompanies him today. He arrives by EMS service. Home Medications Medication Instructions Recorded Confirmed Type acetaminophen 650 mg 1,300 mg PO Q12H PRN Pain 02/04/20 07/26/22 History tablet,extended release ascorbic acid (vitamin C) 1,000 mg 1,000 mg PO BID 02/04/20 07/26/22 History tablet fluticasone propionate 50 2 spray intranasal QAM 02/04/20 07/26/22 History mcg/actuation nasal spray,suspension lisinopril 20 mg tablet 20 mg PO QAM 02/04/20 07/26/22 History amlodipine 2.5 mg tablet 2.5 mg PO HS 05/03/21 07/26/22 History clopidogrel 75 mg tablet 75 mg PO QAM 05/03/21 07/26/22 History folic acid 1 mg tablet 2 mg PO QAM 05/03/21 07/26/22 History hydroxyurea 500 mg capsule 1,000 mg PO QDL 05/03/21 07/26/22 History rosuvastatin 20 mg tablet 20 mg PO HS 05/03/21 07/26/22 History trospium 20 mg tablet 20 mg PO BID 05/03/21 07/26/22 History Allergies Allergy/AdvReac Type Severity Reaction Status Date / Time No Known Allergies Allergy Verified 07/26/22 10:59 Past Med/Surg History Medical History Kaushal filter in place Hypertension Leukocytosis MSSA (methicillin susceptible Staphylococcus aureus) septicemia 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) (08/27/09) "Status post completion of salvage radiation therapy 09/09/2015 received 7020 cGy Urethral stricture with acute urinary retention Status post suprapubic cystostomy" On 10/11/15 10:22 Rachel Thompson wrote "Status post completion of salvage radiation therapy 09/09/2015 received 7020 cGy Urethral stricture with acute urinary retention Plan for suprapubic cystostomy" On 09/13/15 13:18 Rachel Thompson wrote "Status post completion of salvage radiation therapy 09/09/2015 received 7020 cGy" Pulmonary emboli Rising PSA level Sepsis Skin cancer Surgical History H/O radical prostatectomy No history of previous surgery S/P appendectomy Family History Other No significant family history Social History Smoking Status: Former smoker Hx Alcohol Use: Yes Alcohol type: wine Hx Substance Use: No Beater Room Helper Required: No Beliefs That Will Affect Care: None Current Living Situation: Spouse Feels Safe at Home: Yes Seatbelt Use: always Assistive Devices: Cane and Walker Review of Systems A total of 10 systems reviewed and were otherwise negative Physical Exam Vital Signs Vital Signs - 24 hr 07/26/22 09:04 07/26/22 09:22 07/26/22 09:38 Temperature 36.6 C Temperature Source Oral Oral Pulse Rate 81 77 Pulse Rate [Right Brachial] Pulse Rhythm Regular Pulse Rhythm [Right Brachial] Pulse Strength Normal Pulse Strength [Right Brachial] Respiratory Rate 20 Respiratory Effort / Characteristics Non-Labored Respiratory Depth Normal Respiratory Pattern Regular Blood Pressure 118/51 L Blood Pressure [Right Arm] Blood Pressure Mean 73 Blood Pressure Mean [Right Arm] Blood Pressure Position Lying Blood Pressure Position [Right Arm] Pulse Oximetry 98 Oxygen Delivery Method Room Air Sepsis Recent Fever Within 48 Hours No Sepsis New/Unexplained Change in Mental Status No Sepsis Action Taken by Nursing No Action Required 07/26/22 13:00 Temperature 36.8 C Temperature Source Oral Pulse Rate Pulse Rate [Right Brachial] 85 Pulse Rhythm Pulse Rhythm [Right Brachial] Regular Pulse Strength Pulse Strength [Right Brachial] Normal Respiratory Rate 19 Respiratory Effort / Characteristics Non-Labored Spontaneous Respiratory Depth Normal Respiratory Pattern Regular Blood Pressure Blood Pressure [Right Arm] 128/56 L Blood Pressure Mean Blood Pressure Mean [Right Arm] 80 Blood Pressure Position Blood Pressure Position [Right Arm] Lying Pulse Oximetry 95 Oxygen Delivery Method Room Air Sepsis Recent Fever Within 48 Hours Sepsis New/Unexplained Change in Mental Status Sepsis Action Taken by Nursing General: Frail, elderly white male, in no acute distress. Laying on the bed. Alert and oriented. Conversive. Skin: Warm and dry with fair turgor. No rashes. No ecchymosis or erythema. He has 3 circular healing wounds on his back from previous excisions. He also has 3 circular healing wounds present on his scalp from previous excisions. The patient is not diaphoretic. No abrasions. Left leg has visible edema compared to the right leg. This is generalized through the calf and thigh. No warmth or palpable cord. Mild discomfort with palpation of the calf. HEENT: Normocephalic atraumatic. Eyes PERRLA, EOMI. No conjunctiva or scleral injection. Nares patent bilaterally without turbinate enlargement. No significant drainage. No epistaxis. Oropharynx without erythema or exudate. Uvula midline, oral mucosa moist. No lesions present. Heart: Heart RRR. No MGR. Peripheral pulses are 2+ for dorsalis pedis. Posterior tibial pulse is 1+ on the left compared to 2+ on the right. Lungs: Lungs are clear to auscultation. No crackles rhonchi or wheezing. Good air movement. The patient is able to take a deep breath. Abdomen: Abdomen was inspected, auscultated, and palpated. Bowel sounds present x 4. Soft, nontender to palpation. No hepato-splenomegaly. No masses noted. No rebound. Musculoskeletal: Gross motor function of the upper and lower extremities is intact and unremarkable. He has no discomfort with palpation over the right leg. Above-stated mildly positive Homans test on the left. He has no discomfort with palpation over his thoracic or lumbar spine. He describes soreness across his belt line posteriorly, but I cannot make it worse by p alpation or motion. Neurologic: Gross sensation is intact across the upper and lower extremities by soft touch. Course Administered Medications Discontinued Medications Acetaminophen (Acetaminophen 325 Mg Tab) 650 mg PO Q4H PRN PRN Reason: Pain Stop: 08/26/22 04:27 Last Admin: 07/27/22 05:10 Dose: 650 mg Documented By: KAHLIL Ascorbic Acid (Ascorbic Acid 500 Mg Tab) 1,000 mg PO BID [facility] Stop: 08/25/22 20:59 Last Admin: 07/27/22 07:18 Dose: 1,000 mg Documented By: [id number] Admin: 07/26/22 20:14 Dose: 1,000 mg Documented By: ANDREA Clopidogrel Bisulfate (Clopidogrel Bisulfate 75 Mg Tab) [address] [facility] Stop: 08/26/22 08:59 Last Admin: 07/27/22 07:18 Dose: 75 mg Documented By: [id number] Folic Acid (Folic Acid 1 Mg Tab) [address] [facility] Stop: 08/26/22 08:59 Last Admin: 07/27/22 07:19 Dose: 2 mg Documented By: [id number] Heparin Sodium (Porcine) (Heparin Sod (Porcine) 1000 Unit/Ml) 6,000 units IV NOW ONE Stop: 07/26/22 12:42 Last Admin: 07/26/22 13:03 Dose: 6,000 units Documented By: GGG Co-signed By: AM Heparin Sodium/Dextrose (Heparin Sodium/Dextrose) 25,000 units in 500 mls @ 27 mls/hr IV .[id number] [facility]; Protocol Stop: 08/25/22 12:44 Last Admin: 07/27/22 07:17 Dose: 1,350 units/hr, 27 mls/hr Documented By: [id number] Co-signed By: ANNETTA Titration: 07/27/22 07:17 Dose: 1,350 units/hr, 27 mls/hr Documented By: [id number] Co-signed By: ANNETTA Titration: 07/27/22 07:14 Dose: 1,350 units/hr, 27 mls/hr Documented By: [id number] Co-signed By: SONYA Titration: 07/26/22 20:50 Dose: 1,350 units/hr, 27 mls/hr Documented By: KAHLIL Co-signed By: ANDREA Admin: 07/26/22 13:06 Dose: 1,350 units/hr, 27 mls/hr Documented By: CELINA Co-signed By: LEANDRA Parenteral Electrolytes (Normosol-R) 1,000 mls @ 80 mls/hr IV .[id number] [facility] Stop: 07/27/22 02:29 Last Infusion: 07/26/22 19:13 Dose: 0 mls/hr Documented By: Admin: 07/26/22 14:27 Dose: 80 mls/hr Documented By: CELINA Sodium Chloride (Nss 1000ml) 500 mls @ 999 mls/hr IV .[id number] ONE Stop: 07/26/22 14:23 Last Infusion: 07/26/22 15:04 Dose: 0 mls/hr Documented By: Admin: 07/26/22 14:28 Dose: 999 mls/hr Documented By: CELINA Parenteral Electrolytes (Normosol-R) 1,000 mls @ 80 mls/hr IV .[id number] [facility] Stop: 08/25/22 17:27 Last Admin: 07/27/22 04:26 Dose: 80 mls/hr Documented By: Infusion: 07/27/22 03:50 Dose: 0 mls/hr Documented By: Admin: 07/26/22 17:43 Dose: 80 mls/hr Documented By: KIMBER Rosuvastatin Calcium (Rosuvastatin Calcium 20 Mg Tab) 20 mg PO HS [facility] Stop: 08/25/22 20:59 Last Admin: 07/26/22 20:14 Dose: 20 mg Documented By: ANDREA Sodium Chloride (Sodium Chloride 0.65% Na Soln 45 Ml ([place])) 1 sprays NA PRN PRN PRN Reason: Dryness Stop: 08/25/22 20:21 Last Admin: 07/26/22 20:30 Dose: 1 sprays Documented By: ANDREA Medical Decision Making Differential Diagnosis DVT, PE, anemia, electrolyte abnormality, dehydration, renal insufficiency, ACS, [place] Medical Records Attestation: I reviewed the patient's medical records. Home Medications Current Medication List: was personally reviewed by me Laboratory Data CBC, chemistry panel, UA, INR, lactate, and COVID test were obtained. CBC shows elevation of his white count at 16.3. H&H are mildly low at 13.0 and 40.4. Smudge cells and polychromasia are present. INR is 1.1. Sodium low at 129. Potassium and chloride are normal. BUN is elevated at 53 and creatinine is elevated at 2.36. These have changed from his previous lab baseline. LFTs are normal. Lactate is normal at 0.7. COVID test is negative. UA was ordered along with cultures. Results are pending. 07/26/22 09:10 07/26/22 09:30 Lab Results 07/26/22 07/26/22 07/26/22 Range/Units 09:10 09:30 09:30 WBC 60.30 H* (4.8-10.8) K/ul RBC 4.05 L (4.70-6.10) M/uL Hgb 13.0 L (14.0-18.0) g/dl Hct 40.4 L (42.0-52.0) % MCV 99.8 (80.0-100.0) fL MCH 32.1 (25.0-34.0) pg MCHC 32.2 (32.0-36.0) g/dL RDW Std Deviation 50.1 H (36.4-46.3) fL RDW Coeff of Albertina 13.8 (11.5-14.5) % Plt Count 253 (130-400) K/uL MPV 10.4 (9.4-12.4) fL Immature Gran % (Auto) 0.9 % Neut % (Auto) 26.7 % Lymph % (Auto) 63.2 % [place] % (Auto) 8.4 % Eos % (Auto) 0.2 % Baso % (Auto) 0.6 % Neut # (Auto) 16.10 H (1.40-6.50) K/uL Lymph # (Auto) 38.10 H (1.2-3.4) K/uL [place] # (Auto) 5.04 H (0.11-0.59) K/uL Eos # (Auto) 0.11 (0-0.50) K/uL Baso # (Auto) 0.39 H (0-0.2) K/uL Immature Gran # (Auto) 0.56 H (0.01-0.20) K/uL Smudge Cells Present Polychromasia 1+ PT 11.3 (9.0-12.0) Seconds INR 1.1 (0.9-1.1) Sodium 129 L (136-145) mmol/L Potassium 5.0 (3.5-5.1) mmol/L Chloride 98 (98-107) mmol/L Carbon Dioxide 21 (21-32) mmol/L Anion Gap 10 (3-11) BUN 53 H (6-23) mg/dl Creatinine 2.36 H (0.6-1.4) mg/dl Est Cr Clr Drug Dosing 22.5 ml/min Est GFR ( Amer) 27.8 ml/min Est GFR (Non-Af Amer) 24.0 ml/min BUN/Creatinine Ratio 22.5 H (10-20) Glucose 121 H (70-99(Fasting)) mg/dl Osmolality (280-300) mOsm/kg Lactate Calcium 9.3 (8.5-10.1) mg/dl Total Bilirubin 0.9 (0.2-1.0) mg/dl Direct Bilirubin 0.1 (0-0.2) mg/dl AST 25 (13-39) U/L ALT 15 (7-52) U/L Alkaline Phosphatase 52 (34-104) U/L Troponin I High Sens 8.8 (0-20) pg/ml Total Protein 7.2 (6.0-8.3) gm/dl Albumin 4.2 (3.4-5.0) gm/dl Globulin 3.0 (2.5-4.0) gm/dl Albumin/Globulin Ratio 1.4 (0.9-2) SARS-CoV-2, RNA, NAAT (NEGATIVE) 07/26/22 07/26/22 07/26/22 Range/Units 09:31 11:45 12:20 WBC (4.8-10.8) K/ul RBC (4.70-6.10) M/uL Hgb (14.0-18.0) g/dl Hct (42.0-52.0) % MCV (80.0-100.0) fL MCH (25.0-34.0) pg MCHC (32.0-36.0) g/dL RDW Std Deviation (36.4-46.3) fL RDW Coeff of Albertina (11.5-14.5) % Plt Count (130-400) K/uL MPV (9.4-12.4) fL Immature Gran % (Auto) % Neut % (Auto) % Lymph % (Auto) % [place] % (Auto) % Eos % (Auto) % Baso % (Auto) % Neut # (Auto) (1.40-6.50) K/uL Lymph # (Auto) (1.2-3.4) K/uL [place] # (Auto) (0.11-0.59) K/uL Eos # (Auto) (0-0.50) K/uL Baso # (Auto) (0-0.2) K/uL Immature Gran # (Auto) (0.01-0.20) K/uL Smudge Cells Polychromasia PT (9.0-12.0) Seconds INR (0.9-1.1) Sodium (136-145) mmol/L Potassium (3.5-5.1) mmol/L Chloride (98-107) mmol/L Carbon Dioxide (21-32) mmol/L Anion Gap (3-11) BUN (6-23) mg/dl Creatinine (0.6-1.4) mg/dl Est Cr Clr Drug Dosing ml/min Est GFR ( Amer) ml/min Est GFR (Non-Af Amer) ml/min BUN/Creatinine Ratio (10-20) Glucose (70-99(Fasting)) mg/dl Osmolality 292 (280-300) mOsm/kg Lactate Cancelled Calcium (8.5-10.1) mg/dl Total Bilirubin (0.2-1.0) mg/dl Direct Bilirubin (0-0.2) mg/dl AST (13-39) U/L ALT (7-52) U/L Alkaline Phosphatase (34-104) U/L Troponin I High Sens (0-20) pg/ml Total Protein (6.0-8.3) gm/dl Albumin (3.4-5.0) gm/dl Globulin (2.5-4.0) gm/dl Albumin/Globulin Ratio (0.9-2) SARS-CoV-2, RNA, NAAT NEGATIVE (NEGATIVE) Imaging Data My Impression: Chest x-ray obtained today was interpreted by me and read by radiology. Patient has no acute cardiopulmonary changes. He has chronic emphysema and cardiomegaly changes. No pneumothorax. The IVC filter is partially visualized. CT scan imaging of the head was also obtained today due to his weakness. This was also interpreted by me and read by radiology. No acute findings are noted. No hemorrhage, mass effect, or fluid collection. Ultrasound obtained today of the left lower extremity was positive for DVT within the popliteal vein. CT scan imaging of the abdomen pelvis was also obtained given his kidney injury. This was also reviewed by me and read by radiology. The inferior vena cava and iliac arteries appear hyperdense and are distended below the IVC filter with mild surrounding infiltration. These are suspicious for extensive pelvic DVT. The kidneys are without hydronephrosis. Bladder is decompressed around the suprapubic catheter. The wall is thickened. There is surrounding infiltration. Possibility of infection exist. Cholelithiasis is present. No lytic or blastic lesions are noted in the bones. Prostate is surgically absent. No cortez al calculi are identified. No ureteral stones are seen. Radiologist's Impression: Chest X-Ray 07/26/22 09:10 TWO VIEW CHEST CLINICAL HISTORY: Generalized weakness. FINDINGS: PA and lateral chest radiographs are compared to study dated 02/04/2020 and correlated with chest CT dated 04/30/2016. The heart is enlarged noting atherosclerotic calcification of the thoracic aorta. The pulmonary vasculature is noncongested. Emphysema and chronic interstitial thickening is similar to previous. No airspace consolidation or pleural effusion is identified. Scarring/atelectasis is noted at the lung bases. There is no pneumothorax. The skeletal structures are osteopenic. The bony thorax appears intact. An IVC filter is partially visualized in the upper abdomen. IMPRESSION: Cardiomegaly and emphysema with no acute cardiopulmonary abnormality identified. ACT 112: Negative or not required by law. Electronically signed by: Elver Xiao M.D. 07/26/2022 10:[address] 07/26/22 09:10 CT SCAN OF THE BRAIN WITHOUT IV CONTRAST CLINICAL HISTORY: Difficulty with ambulation. COMPARISON STUDY: CT of the brain dated 02/04/2020. TECHNIQUE: Unenhanced axial CT scan of the brain is performed from the vertex to the skull base. A dose lowering technique was utilized adhering to the principles of ALARA. CT DOSE: 614.27 mGy.cm FINDINGS: Brain parenchyma: There is age-related involutional change noting mild subcortical and periventricular microangiopathic disease. There is no hemorrhage, mass effect, or evidence of acute territorial ischemia by CT criteria. Feliz-white matter differentiation is preserved. No extra-axial fluid collection is seen. Ventricles, sulci, cisterns: Prominent secondary to involutional change. Intracranial vasculature: There is atherosclerotic calcification of the cavernous carotid and vertebral arteries. Calvarium: Unremarkable. Sinuses and mastoids: The visualized paranasal sinuses are clear. The mastoid air cells are well pneumatized. Cerumen is noted in the left external auditory canal. Orbits: The bony orbits are grossly intact. There are bilateral ocular lens implants. IMPRESSION: There is no hemorrhage, mass effect, or evidence of acute territorial ischemia by CT criteria. ACT 112: Negative or not required by law. Electronically signed by: Elver Xiao M.D. 07/26/2022 9:59 AM Venous Doppler Study 07/26/22 09:11 ULTRASOUND LEFT LOWER EXTREMITY VENOUS CLINICAL HISTORY: Left leg pain and swelling. COMPARISON STUDY: Bilateral lower extremity venous ultrasound dated 04/24/2016 TECHNIQUE: Real-time, grayscale, and color Doppler sonography of the deep veins of the left lower extremity was performed from the inguinal crease to the calf. Compression and augmentation were utilized. FINDINGS: There is occlusive deep venous thrombosis identified in the popliteal vein. This extends in the calf within one of the posterior tibial veins. The remaining visualized calf vessels appear patent. The common femoral and superficial femoral veins are patent and normally compressible. The greater saphenous vein and the profunda femoris vein at the junction with the common femoral vein are clear. IMPRESSION: Occlusive deep venous thrombosis is seen within the popliteal vein. This extends into the calf. ACT 112: Negative or not required by law. Electronically signed by: Elver Xiao M.D. 07/26/2022 11:05 AM Abdomen/Pelvis CT 07/26/22 11:35 CT SCAN OF THE ABDOMEN AND PELVIS WITHOUT IV CONTRAST CLINICAL HISTORY: Acute renal insufficiency. Decreased urine output COMPARISON STUDY: Abdominal CT dated 05/03/2021. TECHNIQUE: CT scan of the abdomen and pelvis is performed from the lung bases to the proximal femora. Images are reviewed in the axial, sagittal, and coronal planes. IV contrast was not administered for this examination. A dose lowering technique was utilized adhering to the principles of ALARA. CT DOSE: 458.34 mGy.cm FINDINGS: Lung bases: The heart is heart is mildly enlarged and without pericardial effusion. The coronary arteries are densely calcified. There is a small hiatal hernia. Emphysematous change is noted. There is bibasilar scarring/atelectasis. No airspace consolidation or pleural effusion is identified. There are bilateral fat-containing Bochdalek hernias. Liver: The unenhanced liver is normal in size, contour, and attenuation. There is no intrahepatic biliary ductal dilatation. Gallbladder: There are calcified gallstones with no CT evidence of acute cholecystitis. Spleen: The spleen is mildly enlarged measuring 13.8 cm in length. Pancreas: Unremarkable. Adrenal glands: Unremarkable. Kidneys: The unenhanced kidneys demonstrate moderate cortical atrophy and are and without hydronephrosis. No renal calculi are identified and no ureteral stone is seen. Numerous bilateral renal cysts measure up to 4.0 cm. A 1.4 cm indeterminant lesion arising from the posterior interpolar right kidney on #137 is unchanged from 202 and may represent a complex cyst. Abdominal vasculature: There is advanced atherosclerotic calcification and mild ectasia of the abdominal aorta. An infrarenal IVC filter is in place. The inferior vena cava and iliac veins below the stent appear expanded and hyperdense with surrounding infiltration. This suggests thrombosis. Bowel: There is no bowel obstruction. The appendix is not identified and reported surgically absent. Peritoneum: There is no intraperitoneal free air or abdominal ascites. There is a fat-containing umbilical hernia. Lymphadenopathy: None. Pelvic viscera: The bladder is decompressed around a suprapubic catheter. The bladder wall appears thickened and there is surrounding inflammation. The prostate gland is surgically absent. There is nonspecific presacral edema. Skeletal structures: The skeletal structures are osteopenic. Moderate lumbosacral spondylosis is observed. No lytic or blastic lesions are seen. IMPRESSION: 1. The inferior vena cava and iliac arteries appear hyperdense and are distended below the IVC filter with mild surrounding infiltration. These findings are highly suspicious for extensive pelvic deep venous thrombosis. Consider sonographic correlation. 2. The kidneys demonstrate cortical atrophy and are without hydronephrosis. 3. The bladder is decompressed around a suprapubic catheter. The wall appears thickened and there is surrounding infiltration. Correlate with urinalysis. 4. Mild cardiomegaly and emphysema. 5. Cholelithiasis. 6. Additional findings as above. ACT 112: Negative or not required by law. Electronically signed by: Elver Xiao M.D. 07/26/2022 12:55 PM ECG Data Additional Comments: EKG obtained today was reviewed with Dr. Dhillon, and shows a normal sinus rhythm with a rate of 79. When compared to his EKG from April 2021, PACs are no longer present. Blood Pressure Blood Pressure Findings: Normal blood pressure MDM Narrative Patient was evaluated in room C12. Conservative care measures were discussed. IV was established. Labs were obtained. He was placed on a cardiac technician and remained in normal sinus rhythm with a rate in the low to mid 80s. No ectopy was noted. White count is significantly elevated compared to his baseline. While he normally has an elevated white count due to the CLL and polycythemia vera, he is nearly double at over 60. H&H are unremarkable. Smudge cells and polychromasia are present. INR is normal at 1.1. BUN and creatinine are significantly elevated compared to his normal. BUN is 53 with creatinine 2.36. Sodium is low at 129. He appears to be in acute renal failure. UA was ordered along with urine culture. Results are pending. CT scan imaging of the head, abdomen, and pelvis was obtained. Head films were unremarkable. Abdominal films show extensive pelvic DVTs. Chest x-ray was also obtained. This was unremarkable for acute changes. Ultrasound of the left leg was obtained and was positive for DVT. I did discuss the findings with the patient and his . Because of his numerous abnormalities, I did recommend admission. Patient and his are in agreement. [facility] hospitalist service was consulted. Please see Dr. Mckay's note for final management. The patient remained stable while in the ED and did not require any further intervention at this time. Patient was seen in conjunction with Dr. Dhillon, who also evaluated the patient and concurred with today's diagnosis and treatment plan. Impression & Plan BASIM (acute kidney injury), Left leg DVT Discharge Plan Visit Data Chief Complaint: Leg Injury/Pain Stated Complaint: BILAT. LEG PAIN ED Provider: Javi Dhillon ED Midlevel Provider: Srinivas Barton Discharge Problem: BASIM (acute kidney injury), Left leg DVT Patient Disposition: Admitted As Inpatient Discharge Instructions Interventions: ED Discharge Assessment Last Done: 07/26/22 17:04
[2022-07-26] MEDS ORDERED: HEPARIN SOD (PORCINE) 1000 UNIT/ML IV ONE (12:41)
--- NOTE | 2022-07-26 12:57 | CT Scan Report ---
CT SCAN OF THE ABDOMEN AND PELVIS WITHOUT IV CONTRAST CLINICAL HISTORY: Acute renal insufficiency. Decreased urine output COMPARISON STUDY: Abdominal CT dated 05/03/2021. TECHNIQUE: CT scan of the abdomen and pelvis is performed from the lung bases to the proximal femora. Images are reviewed in the axial, sagittal, and coronal planes. IV contrast was not administered for this examination. A dose lowering technique was utilized adhering to the principles of ALARA. CT DOSE: 458.34 mGy.cm FINDINGS: Lung bases: The heart is heart is mildly enlarged and without pericardial effusion. The coronary rashi candelario are densely calcified. There is a small hiatal hernia. Emphysematous change is noted. There is b ibasilar scarring/atelectasis. No airspace consolidation or pleural effusion is identified. There are bilateral fat-containing Bochdalek hernias. Liver: The unenhanced liver is normal in size, contour, and attenuation. There is no intrahepatic penelope iary ductal dilatation. Gallbladder: There are calcified gallstones with no CT evidence of acute cholecystitis. Spleen: The spleen is mildly enlarged measuring 13.8 cm in length. Pancreas: Unremarkable. Adrenal glands: Unremarkable. Kidneys: The unenhanced kidneys demonstrate moderate cortical atrophy and are and without hydronephro sis. No renal calculi are identified and no ureteral stone is seen. Numerous bilateral renal cysts me asure up to 4.0 cm. A 1.4 cm indeterminant lesion arising from the posterior interpolar right kidney on #137 is unchanged from 202 and may represent a complex cyst. Abdominal vasculature: There is advanced atherosclerotic calcification and mild ectasia of the abdomi nal aorta. An infrarenal IVC filter is in place. The inferior vena cava and iliac veins below the truman nt appear expanded and hyperdense with surrounding infiltration. This suggests thrombosis. Bowel: There is no bowel obstruction. The appendix is not identified and reported surgically absent. Peritoneum: There is no intraperitoneal free air or abdominal ascites. There is a fat-containing umbi lical hernia. Lymphadenopathy: None. Pelvic viscera: The bladder is decompressed around a suprapubic catheter. The bladder wall appears th ickened and there is surrounding inflammation. The prostate gland is surgically absent. There is nons pecific presacral edema. Skeletal structures: The skeletal structures are osteopenic. Moderate lumbosacral spondylosis is obse rved. No lytic or blastic lesions are seen. IMPRESSION: 1. The inferior vena cava and iliac arteries appear hyperdense and are distended below the IVC filter with mild surrounding infiltration. These findings are highly suspicious for extensive pelvic deep v enous thrombosis. Consider sonographic correlation. 2. The kidneys demonstrate cortical atrophy and are without hydronephrosis. 3. The bladder is decompressed around a suprapubic catheter. The wall appears thickened and there is surrounding infiltration. Correlate with urinalysis. 4. Mild cardiomegaly and emphysema. 5. Cholelithiasis. 6. Additional findings as above. ACT 112: Negative or not required by law. Electronically signed by: Elver Xiao M.D. 07/26/2022 12:55 PM
[2022-07-26] MEDS: HEPARIN SODIUM/DEXTROSE 25,000 UNITS/500 ML BAG IV SCH (13:06)
[2022-07-26] MEDS ORDERED: SODIUM CHLORIDE 0.9% 1000ML 500 ML IV ONE (13:53)
[2022-07-26] MEDS ORDERED: NORMOSOL-R 1,000 ML IV SCH (14:00)
[2022-07-26 14:47] LABS: Appearance Urine Cloudy (Clear); Bacteria Urine Automated 1+ (Negative); Bilirubin Urine Negative (Negative); Blood Urine Negative (Negative); Color Urine Yellow; Glucose Urine UA Negative (Negative); Ketones Urine Trace (Negative); Leukocyte Esterase Urine 2+ (Negative); Nitrite Urine Negative (Negative); Protein Urine 2+ (Negative); Urobilinogen Urine Negative (Negative); WBC Urine Automated >30 /hpf (0-5)
[2022-07-26 15:11] LABS: RBC Urine Automated 0-4 /hpf (0-4)
[2022-07-26] MEDS: NORMOSOL-R 1,000 ML IV SCH (17:43)
[2022-07-26 19:31] LABS: Urine Chloride < 15 mmol/L; Urine Potassium 54.3 mmol/L; Urine Sodium 12 mmol/L
[2022-07-26] MEDS: ASCORBIC ACID 500 MG TAB PO SCH (20:14)
[2022-07-26 20:18] LABS: Partial Thromboplastin Ratio 2.4
[2022-07-26] MEDS ORDERED: SODIUM CHLORIDE 0.65% NA SOLN 45 ML (OCEAN) PRN (20:22)
[2022-07-26 20:39] LABS: Partial Thromboplastin Time 66.3 Seconds (21.0-31.0)
[2022-07-26] MEDS ORDERED: ROSUVASTATIN CALCIUM 20 MG TAB PO SCH (21:00)
[2022-07-27] MEDS: NORMOSOL-R 1,000 ML IV SCH (04:26)
[2022-07-27] MEDS ORDERED: ACETAMINOPHEN 325 MG TAB PO PRN (04:28)
[2022-07-27 06:34] LABS: BUN Creatinine Ratio 24.8 (10-20); Calcium 8.9 mg/dl (8.5-10.1); Creatinine Clr Calc Pharmacy 25.7 ml/min; Est GFR (African American) 32.8 ml/min; Est GFR (Non-African American) 28.3 ml/min
[2022-07-27 06:40] LABS: Hematocrit (blood only) 37.1 % (42.0-52.0); Hemoglobin 11.7 g/dl (14.0-18.0); Mean Corpuscular Hemoglobin 31.3 pg (25.0-34.0); Mean Corpuscular Hgb Conc 31.5 g/dL (32.0-36.0); Mean Corpuscular Volume 99.2 fL (80.0-100.0); Mean Platelet Volume 10.6 fL (9.4-12.4); Nucleated RBC # (auto) 0.02 K/uL (0-0.12); Platelet Count 246 K/uL (130-400); RDW Coefficient of Variation 13.7 % (11.5-14.5); RDW Standard Deviation 50.1 fL (36.4-46.3); Red Blood Count 3.74 M/uL (4.70-6.10); White Blood Count 55.06 K/ul (4.8-10.8)
[2022-07-27 07:00] LABS: Partial Thromboplastin Ratio 2.2
[2022-07-27 07:07] LABS: Partial Thromboplastin Time 60.8 Seconds (21.0-31.0)
[2022-07-27] MEDS: HEPARIN SODIUM/DEXTROSE 25,000 UNITS/500 ML BAG IV SCH (07:17)
[2022-07-27] MEDS: ASCORBIC ACID 500 MG TAB PO SCH (07:18)
[2022-07-27 07:37] LABS: Basophils # (auto) 0.37 K/uL (0-0.2); Basophils % (auto) 0.7 %; Eosinophils # (auto) 0.13 K/uL (0-0.50); Eosinophils % (auto) 0.2 %; Immature Granulocytes # (auto) 0.49 K/uL (0.01-0.20); Immature Granulocytes % (auto) 0.9 %; Lymphocytes % (auto) 63.4 %; Monocytes % (auto) 10.2 %; Neutrophils # (auto) 13.57 K/uL (1.40-6.50); Neutrophils % (auto) 24.6 %; Smudge Cells Present
--- NOTE | 2022-07-27 08:44 | Electrocardiogram Report ---
Test Reason : Blood Pressure : / mmHG Vent. Rate : 079 BPM Atrial Rate : 079 BPM P-R Int : 178 ms QRS Dur : 128 ms QT Int : 384 ms P-R-T Axes : 013 037 045 degrees QTc Int : 440 ms Normal sinus rhythm Right bundle branch block Abnormal ECG When compared with ECG of 03-MAY-2021 20:22, Premature atrial complexes are no longer Present Confirmed by Diomedes Meng ([id number]) on 07/27/2022 8:43:46 AM Referred By: REFERRED SELF Confirmed By:Jorge Meng
--- NOTE | 2022-07-27 08:53 | Nephrology Consultation ---
Date of Consultation July 27, 2022 History of Present Illness Reason for Consultation: BASIM/CKD Requesting Physician: Sarthak Kinsey MD Attending Physician: Sarthak Kinsey MD History of Present Illness Mr. Topher Cook is an 87 year-old male with chronic kidney disease. Baseline creatinine ~1.6-1.7 mg/dL. 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 CKD can be attributed to microvascular disease and BASIM. There is symmetric bilateral cortical atrophy on CT. There is no evidence of renal obstruction on CT scan. Urine studies on admission are notable for +2 protein, +2 LE, >30 WBC, no RBC's. Urine sodium 12 mmol/L. The patient presented to [facility] ER with a chief complaint of LLE edema. He also reported some ambulatory dysfunction, including pain and discomfort in the leg. He did not fall but reported a near fall prompting evaluation. Evaluation revealing a popliteal DVT to the calf. Laboratory evaluation notable for serum creatinine elevated at 2.2 mg/dL. Sodium 129 mmol/L and potassium 5.0 mmol/L. On review of systems, Topher reported decreased urine output. The admitting hospitalist found him to be euvolemic to slightly volume depleted. Lisinopril was held. IV saline x 1 L provided followed by maintenance Normosol infusion. I discussed the case with Dr. Mckay yesterday evening. This morning a code blue was called. The patient was bleeding from his forehead and unresponsive. He was found to be in PEA arrest and DNR/DNI was respected. The hospitalist team was present and his was contacted by Dr. Kinsey. Consultation not completed due to patient . Allergies Allergy/AdvReac Type Severity Reaction Status Date / Time No Known Allergies Allergy Verified 07/26/22 10:59 Home Medications Medication Instructions Recorded Confirmed Type acetaminophen 650 mg 1,300 mg PO Q12H PRN Pain 02/04/20 07/26/22 History tablet,extended release ascorbic acid (vitamin C) 1,000 mg 1,000 mg PO BID 02/04/20 07/26/22 History tablet fluticasone propionate 50 2 spray intranasal QAM 02/04/20 07/26/22 History mcg/actuation nasal spray,suspension lisinopril 20 mg tablet 20 mg PO QAM 02/04/20 07/26/22 History amlodipine 2.5 mg tablet 2.5 mg PO HS 05/03/21 07/26/22 History clopidogrel 75 mg tablet 75 mg PO QAM 05/03/21 07/26/22 History folic acid 1 mg tablet 2 mg PO QAM 05/03/21 07/26/22 History hydroxyurea 500 mg capsule 1,000 mg PO QDL 05/03/21 07/26/22 History rosuvastatin 20 mg tablet 20 mg PO HS 05/03/21 07/26/22 History trospium 20 mg tablet 20 mg PO BID 05/03/21 07/26/22 History Patient History Medical History [place] filter in place Hypertension Leukocytosis MSSA (methicillin susceptible Staphylococcus aureus) septicemia 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) (08/27/09) "Status post completion of salvage radiation therapy 09/09/2015 received 7020 cGy Urethral stricture with acute urinary retention Status post suprapubic cystostomy" On 10/11/15 10:22 Rachel Thompson wrote "Status post completion of salvage radiation therapy 09/09/2015 received 7020 cGy Urethral stricture with acute urinary retention Plan for suprapubic cystostomy" On 09/13/15 13:18 Rachel Thompson wrote "Status post completion of salvage radiation therapy 09/09/2015 received 7020 cGy" Pulmonary emboli Rising PSA level Sepsis Skin cancer Surgical History H/O radical prostatectomy No history of previous surgery S/P appendectomy Family History Other No significant family history Social History Smoking Status: Former smoker Hx Alcohol Use: Yes Alcohol type: wine Hx Substance Use: No Wheel Polisher Required: No Beliefs That Will Affect Care: None Current Living Situation: Spouse Feels Safe at Home: Yes Seatbelt Use: always Assistive Devices: Cane and Walker Results & Data ([facility]) Vital Signs (Past 12 Hours) Vital Signs Temp Pulse Pulse Resp BP Pulse Ox O2 Del Method 07/27/22 07:50 37.1 C 81 14 143/75 H 93 Room Air 07/27/22 07:03 82 07/27/22 03:05 37.2 C 95 H 16 129/68 91 Room Air 07/26/22 23:20 86 07/26/22 22:56 37.4 C 84 16 113/62 91 Room Air Laboratory Results Laboratory Results - last 24 hr 07/26/22 07/26/22 07/26/22 09:10 09:30 09:30 WBC 60.30 H* RBC 4.05 L Hgb 13.0 L Hct 40.4 L MCV 99.8 MCH 32.1 MCHC 32.2 RDW Std Deviation 50.1 H RDW Coeff of Albertina 13.8 Plt Count 253 MPV 10.4 Immature Gran % (Auto) 0.9 Neut % (Auto) 26.7 Lymph % (Auto) 63.2 [place] % (Auto) 8.4 Eos % (Auto) 0.2 Baso % (Auto) 0.6 Neut # (Auto) 16.10 H Lymph # (Auto) 38.10 H [place] # (Auto) 5.04 H Eos # (Auto) 0.11 Baso # (Auto) 0.39 H Immature Gran # (Auto) 0.56 H Absolute Nucleated RBC Smudge Cells Present Polychromasia 1+ PT 11.3 INR 1.1 APTT PTT Ratio Sodium 129 L Potassium 5.0 Chloride 98 Carbon Dioxide 21 Anion Gap 10 BUN 53 H Creatinine 2.36 H Est Cr Clr Drug Dosing 22.5 Est GFR ( Amer) 27.8 Est GFR (Non-Af Amer) 24.0 BUN/Creatinine Ratio 22.5 H Glucose 121 H Osmolality Lactate Calcium 9.3 Total Bilirubin 0.9 Direct Bilirubin 0.1 AST 25 ALT 15 Alkaline Phosphatase 52 Troponin I High Sens 8.8 Total Protein 7.2 Albumin 4.2 Globulin 3.0 Albumin/Globulin Ratio 1.4 Urine Color Urine Appearance Urine pH Ur Specific [place] Urine Protein Urine Glucose (UA) Urine Ketones Urine Blood Urine Nitrite Urine Bilirubin Urine Urobilinogen Ur Leukocyte Esterase Urine WBC (Auto) Urine RBC (Auto) U Hyaline Cast (Auto) U Epithel Cells (Auto) Urine Bacteria (Auto) Urine Osmolality Urine Sodium Urine Potassium Urine Chloride SARS-CoV-2, RNA, NAAT 07/26/22 07/26/22 07/26/22 09:31 11:45 12:20 WBC RBC Hgb Hct MCV MCH MCHC RDW Std Deviation RDW Coeff of Albertina Plt Count MPV Immature Gran % (Auto) Neut % (Auto) Lymph % (Auto) [place] % (Auto) Eos % (Auto) Baso % (Auto) Neut # (Auto) Lymph # (Auto) [place] # (Auto) Eos # (Auto) Baso # (Auto) Immature Gran # (Auto) Absolute Nucleated RBC Smudge Cells Polychromasia PT INR APTT PTT Ratio Sodium Potassium Chloride Carbon Dioxide Anion Gap BUN Creatinine Est Cr Clr Drug Dosing Est GFR ( Amer) Est GFR (Non-Af Amer) BUN/Creatinine Ratio Glucose Osmolality 292 Lactate Cancelled Calcium Total Bilirubin Direct Bilirubin AST ALT Alkaline Phosphatase Troponin I High Sens Total Protein Albumin Globulin Albumin/Globulin Ratio Urine Color Urine Appearance Urine pH Ur Specific [place] Urine Protein Urine Glucose (UA) Urine Ketones Urine Blood Urine Nitrite Urine Bilirubin Urine Urobilinogen Ur Leukocyte Esterase Urine WBC (Auto) Urine RBC (Auto) U Hyaline Cast (Auto) U Epithel Cells (Auto) Urine Bacteria (Auto) Urine Osmolality Urine Sodium Urine Potassium Urine Chloride SARS-CoV-2, RNA, NAAT NEGATIVE 07/26/22 07/26/22 07/26/22 12:46 14:20 14:20 WBC RBC Hgb Hct MCV MCH MCHC RDW Std Deviation RDW Coeff of Albertina Plt Count MPV Immature Gran % (Auto) Neut % (Auto) Lymph % (Auto) [place] % (Auto) Eos % (Auto) Baso % (Auto) Neut # (Auto) Lymph # (Auto) [place] # (Auto) Eos # (Auto) Baso # (Auto) Immature Gran # (Auto) Absolute Nucleated RBC Smudge Cells Polychromasia PT INR APTT PTT Ratio Sodium Potassium Chloride Carbon Dioxide Anion Gap BUN Creatinine Est Cr Clr Drug Dosing Est GFR ( Amer) Est GFR (Non-Af Amer) BUN/Creatinine Ratio Glucose Osmolality Lactate 0.7 Calcium Total Bilirubin Direct Bilirubin AST ALT Alkaline Phosphatase Troponin I High Sens Total Protein Albumin Globulin Albumin/Globulin Ratio Urine Color Urine Appearance Urine pH Ur Specific [place] Urine Protein Urine Glucose (UA) Urine Ketones Urine Blood Urine Nitrite Urine Bilirubin Urine Urobilinogen Ur Leukocyte Esterase Urine WBC (Auto) Urine RBC (Auto) U Hyaline Cast (Auto) U Epithel Cells (Auto) Urine Bacteria (Auto) Urine Osmolality 463 L Urine Sodium 12 Urine Potassium 54.3 Urine Chloride < 15 SARS-CoV-2, RNA, NAAT 07/26/22 07/26/22 07/27/22 14:25 19:17 05:51 WBC RBC Hgb Hct MCV MCH MCHC RDW Std Deviation RDW Coeff of Albertina Plt Count MPV Immature Gran % (Auto) Neut % (Auto) Lymph % (Auto) [place] % (Auto) Eos % (Auto) Baso % (Auto) Neut # (Auto) Lymph # (Auto) [place] # (Auto) Eos # (Auto) Baso # (Auto) Immature Gran # (Auto) Absolute Nucleated RBC Smudge Cells Polychromasia PT INR APTT 66.3 H* 60.8 H* PTT Ratio 2.4 2.2 Sodium Potassium Chloride Carbon Dioxide Anion Gap BUN Creatinine Est Cr Clr Drug Dosing Est GFR ( Amer) Est GFR (Non-Af Amer) BUN/Creatinine Ratio Glucose Osmolality Lactate Calcium Total Bilirubin Direct Bilirubin AST ALT Alkaline Phosphatase Troponin I High Sens Total Protein Albumin Globulin Albumin/Globulin Ratio Urine Color Yellow Urine Appearance Cloudy A Urine pH 5.0 Ur Specific [place] 1.020 Urine Protein 2+ H Urine Glucose (UA) Negative Urine Ketones Trace H Urine Blood Negative Urine Nitrite Negative Urine Bilirubin Negative Urine Urobilinogen Negative Ur Leukocyte Esterase 2+ H Urine WBC (Auto) >30 H Urine RBC (Auto) 0-4 U Hyaline Cast (Auto) 1-5 U Epithel Cells (Auto) 10-20 H Urine Bacteria (Auto) 1+ H Urine Osmolality Urine Sodium Urine Potassium Urine Chloride SARS-CoV-2, RNA, NAAT 07/27/22 07/27/22 05:51 05:51 WBC 55.06 H* RBC 3.74 L Hgb 11.7 L Hct 37.1 L MCV 99.2 MCH 31.3 MCHC 31.5 L RDW Std Deviation 50.1 H RDW Coeff of Albertina 13.7 Plt Count 246 MPV 10.6 Immature Gran % (Auto) 0.9 Neut % (Auto) 24.6 Lymph % (Auto) 63.4 [place] % (Auto) 10.2 Eos % (Auto) 0.2 Baso % (Auto) 0.7 Neut # (Auto) 13.57 H Lymph # (Auto) 34.90 H [place] # (Auto) 5.60 H Eos # (Auto) 0.13 Baso # (Auto) 0.37 H Immature Gran # (Auto) 0.49 H Absolute Nucleated RBC 0.02 Smudge Cells Present Polychromasia PT INR APTT PTT Ratio Sodium 129 L Potassium 5.0 Chloride 100 Carbon Dioxide 22 Anion Gap 7 BUN 51 H Creatinine 2.06 H D Est Cr Clr Drug Dosing 25.7 Est GFR ( Amer) 32.8 Est GFR (Non-Af Amer) 28.3 BUN/Creatinine Ratio 24.8 H Glucose 114 H Osmolality Lactate Calcium 8.9 Total Bilirubin Direct Bilirubin AST ALT Alkaline Phosphatase Troponin I High Sens Total Protein Albumin Globulin Albumin/Globulin Ratio Urine Color Urine Appearance Urine pH Ur Specific [place] Urine Protein Urine Glucose (UA) Urine Ketones Urine Blood Urine Nitrite Urine Bilirubin Urine Urobilinogen Ur Leukocyte Esterase Urine WBC (Auto) Urine RBC (Auto) U Hyaline Cast (Auto) U Epithel Cells (Auto) Urine Bacteria (Auto) Urine Osmolality Urine Sodium Urine Potassium Urine Chloride SARS-CoV-2, RNA, NAAT Diagnostic Findings Abdomen/Pelvis CT 07/26/22 WITHOUT IV CONTRAST FINDINGS: Lung bases: The heart is heart is mildly enlarged and without pericardial effusion. The coronary arteries are densely calcified. There is a small hiatal hernia. Emphysematous change is noted. There is bibasilar scarring/atelectasis. No airspace consolidation or pleural effusion is identified. There are bilateral fat-containing Bochdalek hernias. Liver: The unenhanced liver is normal in size, contour, and attenuation. There is no intrahepatic biliary ductal dilatation. Gallbladder: There are calcified gallstones with no CT evidence of acute cholecystitis. Spleen: The spleen is mildly enlarged measuring 13.8 cm in length. Pancreas: Unremarkable. Adrenal glands: Unremarkable. Kidneys: The unenhanced kidneys demonstrate moderate cortical atrophy and are and without hydronephrosis. No renal calculi are identified and no ureteral stone is seen. Numerous bilateral renal cysts measure up to 4.0 cm. A 1.4 cm indeterminant lesion arising from the posterior interpolar right kidney on #137 is unchanged from 2021 and may represent a complex cyst. Abdominal vasculature: There is advanced atherosclerotic calcification and mild ectasia of the abdominal aorta. An infrarenal IVC filter is in place. The inferior vena cava and iliac veins below the stent appear expanded and hyperdense with surrounding infiltration. This suggests thrombosis. Bowel: There is no bowel obstruction. The appendix is not identified and reported surgically absent. Peritoneum: There is no intraperitoneal free air or abdominal ascites. There is a fat-containing umbilical hernia. Lymphadenopathy: None. Pelvic viscera: The bladder is decompressed around a suprapubic catheter. The bladder wall appears thickened and there is surrounding inflammation. The prostate gland is surgically absent. There is nonspecific presacral edema. Skeletal structures: The skeletal structures are osteopenic. Moderate yeny mbosacral spondylosis is observed. No lytic or blastic lesions are seen. IMPRESSION: 1. The inferior vena cava and iliac arteries appear hyperdense and are distended below the IVC filter with mild surrounding infiltration. These findings are highly suspicious for extensive pelvic deep venous thrombosis. Consider sonographic correlation. 2. The kidneys demonstrate cortical atrophy and are without hydronephrosis. 3. The bladder is decompressed around a suprapubic catheter. The wall appears thickened and there is surrounding infiltration. Correlate with urinalysis. 4. Mild cardiomegaly and emphysema. 5. Cholelithiasis. PG Care Time/CCT Total # of Minutes Spent Total Time Spent with Patient: Total time spent is greater than 50% in coordination of care (as documented) at patient's floor/unit and/or counseling patient: Coding Diagnoses
[2022-07-27] MEDS ORDERED: FOLIC ACID 1 MG TAB PO SCH (09:00)
[2022-07-27] MEDS ORDERED: CLOPIDOGREL BISULFATE 75 MG TAB PO SCH (09:00)
--- NOTE | 2022-07-27 09:51 | Death Pronouncement Note ---
Date of Service July 27, 2022 Pronouncement Note Admission Date July 26, 2022 Date and Time of Date of : 07/27/22 Time of : 09:29 Preliminary Cause of (1) Bradycardia: Contributing Factors DVT in the setting of CLL & polycythemia Additional Data Confirmation of : no pulse, no respirations, no heart sounds and pupils fixed and dilated Pronouncement Performed By: Resident Physician Family: contacted Additional persons at bedside: cafeteria worker Attending/PCP notified?: Yes Attending physician: Sarthak Kinsey MD Was code activated?: Yes (Patient was DNR/DNI -- no CPR administered) Supervising Physician Co-Signing Physician Notes Attending attestation Pt seen and examined in concert with Dr. Manrique. In agreement with the documented findings as noted in the resident documentation with any exceptions or additions as noted here. Resident Activity Tracking Resident Involvement: Resident Care Provided Care Provided: Adult Hospital Medicine
--- NOTE | 2022-07-27 09:54 | Discharge Summary ---
Date of Service July 27, 2022 Admission HPI Per Admitting Provider Topher is an 87-year-old male with a past medical history of CLL, hypertension, hyperlipidemia, prostate cancer s/p prostatectomy, past DVT with Kaushal filter placement which was not removed subsequently, and CKD who presents with ARF and weakness. 1 week ago L left swollen, pain in thigh and calf. Was having pain spreading across lower waist and back over the next few days. Minimal pain sitting, more pain when trying to ambulate More fatigued over the last week This morning tried to walk across the room 'and damn near fell down' so he cam ein for evaluation Quit smoking 35 years ago No long trips/travel 6 years ago had sepsis with blood clots in both legs Has a kaushal filter, was not removed. Thinks was done with Dr. Cota Is not sure why they chose a filter instead of a anticoagulant No problems with bleeding. 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 Had a Stroke last january, no residual deficits. Presented with dysarthria and R weakness. R leg improved over a year, speech normalized. On plaavix after being flown to [place]. Has a history of CLL. Polycythemia and leukocytosis was noted while at [place]. Sees Dr. Morris and was placed on the hydroxyuria. has discussed this w/ Dr. Morris and unless was >200 pt reports was going to monitor. Reports has brisk drainage from his catheter bag which is usually emptied 1x overnight and nearly full again over the morning. normally ~3500mL output, haroon [place]en[place] had ~200cc of output overall overnight which is very unusual for him.Per pt norm of No fevers or chills. [place] a little chilly this AM but no shaking chills no night sweats no SoB, dyspnea, chest pain, or chest pressure Medical History: Reviewed Medications: Reviewed Surgical History: Reviewed Allergies: Reviewed Social History: Former smoker, no use in 35 yeras. No etoh. Code Status: DNR/DNI Principal Diagnosis Bradycardia in the setting of DVT with CLL & polycythemia Discharge Exam see note per senior resident Discharge Data Allergies Allergy/AdvReac Type Severity Reaction Status Date / Time No Known Allergies Allergy Verified 07/26/22 10:59 Consultations 07/26/22 11:47 ED Decision to Admit Stat 07/26/22 17:28 Consult Nephrology Routine Ordered Studies 07/26/22 09:10 CT head/brain wo con Stat 07/26/22 09:11 US venous doppler LE LT Urgent 07/26/22 11:35 CT Abd and Pelvis [CT abd pelvis wo con] Stat Laboratory Results WBC 55.06 K/ul (4.8-10.8) H* 07/27/22 05:51 RBC 3.74 M/uL (4.70-6.10) L 07/27/22 05:51 Hgb 11.7 g/dl (14.0-18.0) L 07/27/22 05:51 Hct 37.1 % (42.0-52.0) L 07/27/22 05:51 MCV 99.2 fL (80.0-100.0) 07/27/22 05:51 MCH 31.3 pg (25.0-34.0) 07/27/22 05:51 MCHC 31.5 g/dL (32.0-36.0) L 07/27/22 05:51 RDW Std Deviation 50.1 fL (36.4-46.3) H 07/27/22 05:51 RDW Coeff of Albertina 13.7 % (11.5-14.5) 07/27/22 05:51 Plt Count 246 K/uL (130-400) 07/27/22 05:51 MPV 10.6 fL (9.4-12.4) 07/27/22 05:51 Immature Gran % (Auto) 0.9 % 07/27/22 05:51 Neut % (Auto) 24.6 % 07/27/22 05:51 Lymph % (Auto) 63.4 % 07/27/22 05:51 [place] % (Auto) 10.2 % 07/27/22 05:51 Eos % (Auto) 0.2 % 07/27/22 05:51 Baso % (Auto) 0.7 % 07/27/22 05:51 Neut # (Auto) 13.57 K/uL (1.40-6.50) H 07/27/22 05:51 Lymph # (Auto) 34.90 K/uL (1.2-3.4) H 07/27/22 05:51 [place] # (Auto) 5.60 K/uL (0.11-0.59) H 07/27/22 05:51 Eos # (Auto) 0.13 K/uL (0-0.50) 07/27/22 05:51 Baso # (Auto) 0.37 K/uL (0-0.2) H 07/27/22 05:51 Immature Gran # (Auto) 0.49 K/uL (0.01-0.20) H 07/27/22 05:51 Absolute Nucleated RBC 0.02 K/uL (0-0.12) 07/27/22 05:51 Smudge Cells Present 07/27/22 05:51 Polychromasia 1+ 07/26/22 09:10 PT 11.3 Seconds (9.0-12.0) 07/26/22 09:30 INR 1.1 (0.9-1.1) 07/26/22 09:30 APTT 60.8 Seconds (21.0-31.0) H* 07/27/22 05:51 PTT Ratio 2.2 07/27/22 05:51 Sodium 129 mmol/L (136-145) L 07/27/22 05:51 Potassium 5.0 mmol/L (3.5-5.1) 07/27/22 05:51 Chloride 100 mmol/L (98-107) 07/27/22 05:51 Carbon Dioxide 22 mmol/L (21-32) 07/27/22 05:51 Anion Gap 7 (3-11) 07/27/22 05:51 BUN 51 mg/dl (6-23) H 07/27/22 05:51 Creatinine 2.06 mg/dl (0.6-1.4) H D 07/27/22 05:51 Est Cr Clr Drug Dosing 25.7 ml/min 07/27/22 05:51 Est GFR ( Amer) 32.8 ml/min 07/27/22 05:51 Est GFR (Non-Af Amer) 28.3 ml/min 07/27/22 05:51 BUN/Creatinine Ratio 24.8 (10-20) H 07/27/22 05:51 Glucose 114 mg/dl (70-99(Fasting)) H 07/27/22 05:51 Osmolality 292 mOsm/kg (280-300) 07/26/22 09:31 Lactate 0.7 mmol/L (0.4-2.0) 07/26/22 12:46 Calcium 8.9 mg/dl (8.5-10.1) 07/27/22 05:51 Total Bilirubin 0.9 mg/dl (0.2-1.0) 07/26/22 09:30 Direct Bilirubin 0.1 mg/dl (0-0.2) 07/26/22 09:30 AST 25 U/L (13-39) 07/26/22 09:30 ALT 15 U/L (7-52) 07/26/22 09:30 Alkaline Phosphatase 52 U/L (34-104) 07/26/22 09:30 Troponin I High Sens 8.8 pg/ml (0-20) 07/26/22 09:30 Total Protein 7.2 gm/dl (6.0-8.3) 07/26/22 09:30 Albumin 4.2 gm/dl (3.4-5.0) 07/26/22 09:30 Globulin 3.0 gm/dl (2.5-4.0) 07/26/22 09:30 Albumin/Globulin Ratio 1.4 (0.9-2) 07/26/22 09:30 Urine Color Yellow 07/26/22 14:25 Urine Appearance Cloudy (Clear) A 07/26/22 14:25 Urine pH 5.0 (4.5-7.5) 07/26/22 14:25 Ur Specific [place] 1.020 (1.000-1.030) 07/26/22 14:25 Urine Protein 2+ (Negative) H 07/26/22 14:25 Urine Glucose (UA) Negative (Negative) 07/26/22 14:25 Urine Ketones Trace (Negative) H 07/26/22 14:25 Urine Blood Negative (Negative) 07/26/22 14:25 Urine Nitrite Negative (Negative) 07/26/22 14:25 Urine Bilirubin Negative (Negative) 07/26/22 14:25 Urine Urobilinogen Negative (Negative) 07/26/22 14:25 Ur Leukocyte Esterase 2+ (Negative) H 07/26/22 14:25 Urine WBC (Auto) >30 /hpf (0-5) H 07/26/22 14:25 Urine RBC (Auto) 0-4 /hpf (0-4) 07/26/22 14:25 U Hyaline Cast (Auto) 1-5 /lpf (0-5) 07/26/22 14:25 U Epithel Cells (Auto) 10-20 /lpf (0-5) H 07/26/22 14:25 Urine Bacteria (Auto) 1+ (Negative) H 07/26/22 14:25 Urine Osmolality 463 mOsm/kg (500-800) L 07/26/22 14:20 Urine Sodium 12 mmol/L 07/26/22 14:20 Urine Potassium 54.3 mmol/L 07/26/22 14:20 Urine Chloride < 15 mmol/L 07/26/22 14:20 SARS-CoV-2, RNA, NAAT NEGATIVE (NEGATIVE) 07/26/22 12:20 Impressions Chest X-Ray 07/26/22 09:10 TWO VIEW CHEST CLINICAL HISTORY: Generalized weakness. FINDINGS: PA and lateral chest radiographs are compared to study dated 02/04/2020 and correlated with chest CT dated 04/30/2016. The heart is enlarged noting atherosclerotic calcification of the thoracic aorta. The pulmonary vasculature is noncongested. Emphysema and chronic interstitial thickening is similar to previous. No airspace consolidation or pleural effusion is identified. Scarring/atelectasis is noted at the lung bases. There is no pneumothorax. The skeletal structures are osteopenic. The bony thorax appears intact. An IVC filter is partially visualized in the upper abdomen. IMPRESSION: Cardiomegaly and emphysema with no acute cardiopulmonary abnormality identified. ACT 112: Negative or not required by law. Electronically signed by: Elver Xiao M.D. 07/26/2022 10:[address] 07/26/22 09:10 CT SCAN OF THE BRAIN WITHOUT IV CONTRAST CLINICAL HISTORY: Difficulty with ambulation. COMPARISON STUDY: CT of the brain dated 02/04/2020. TECHNIQUE: Unenhanced axial CT scan of the brain is performed from the vertex to the skull base. A dose lowering technique was utilized adhering to the principles of ALARA. CT DOSE: 614.27 mGy.cm FINDINGS: Brain parenchyma: There is age-related involutional change noting mild subcortical and periventricular microangiopathic disease. There is no hemorrhage, mass effect, or evidence of acute territorial ischemia by CT criteria. Feliz-white matter differentiation is preserved. No extra-axial fluid collection is seen. Ventricles, sulci, cisterns: Prominent secondary to involutional change. Intracranial vasculature: There is atherosclerotic calcification of the hermilo nous carotid and vertebral arteries. Calvarium: Unremarkable. Sinuses and mastoids: The visualized paranasal sinuses are clear. The mastoid air cells are well pneumatized. Cerumen is noted in the left external auditory canal. Orbits: The bony orbits are grossly intact. There are bilateral ocular lens implants. IMPRESSION: There is no hemorrhage, mass effect, or evidence of acute territor ial ischemia by CT criteria. ACT 112: Negative or not required by law. Electronically signed by: Elver Xiao M.D. 07/26/2022 9:59 AM Venous Doppler Study 07/26/22 09:11 ULTRASOUND LEFT LOWER EXTREMITY VENOUS CLINICAL HISTORY: Left leg pain and swelling. COMPARISON STUDY: Bilateral lower extremity venous ultrasound dated 04/24/2016 TECHNIQUE: Real-time, grayscale, and color Doppler sonography of the deep veins of the left lower extremity was performed from the inguinal crease to the calf. Compression and augmentation were utilized. FINDINGS: There is occlusive deep venous thrombosis identified in the popliteal vein. This extends in the calf within one of the posterior tibial veins. The remaining visualized calf vessels appear patent. The common femoral and superficial femoral veins are patent and normally compressible. The greater saphenous vein and the profunda femoris vein at the junction with the common femoral vein are clear. IMPRESSION: Occlusive deep venous thrombosis is seen within the popliteal vein. This extends into the calf. ACT 112: Negative or not required by law. Electronically signed by: Elver Xiao M.D. 07/26/2022 11:05 AM Abdomen/Pelvis CT 07/26/22 11:35 CT SCAN OF THE ABDOMEN AND PELVIS WITHOUT IV CONTRAST CLINICAL HISTORY: Acute renal insufficiency. Decreased urine output COMPARISON STUDY: Abdominal CT dated 05/03/2021. TECHNIQUE: CT scan of the abdomen and pelvis is performed from the lung bases to the proximal femora. Images are reviewed in the axial, sagittal, and coronal planes. IV contrast was not administered for this examination. A dose lowering technique was utilized adhering to the principles of ALARA. CT DOSE: 458.34 mGy.cm FINDINGS: Lung bases: The heart is heart is mildly enlarged and without pericardial effusion. The coronary arteries are densely calcified. There is a small hiatal hernia. Emphysematous change is noted. There is bibasilar scarring/atelectasis. No airspace consolidation or pleural effusion is identified. There are bilateral fat-containing Bochdalek hernias. Liver: The unenhanced liver is normal in size, contour, and attenuation. There is no intrahepatic biliary ductal dilatation. Gallbladder: There are calcified gallstones with no CT evidence of acute cholecystitis. Spleen: The spleen is mildly enlarged measuring 13.8 cm in length. Pancreas: Unremarkable. Adrenal glands: Unremarkable. Kidneys: The unenhanced kidneys demonstrate moderate cortical atrophy and are and without hydronephrosis. No renal calculi are identified and no ureteral stone is seen. Numerous bilateral renal cysts measure up to 4.0 cm. A 1.4 cm indeterminant lesion arising from the posterior interpolar right kidney on #137 is unchanged from 2021 and may represent a complex cyst. Abdominal vasculature: There is advanced atherosclerotic calcification and mild ectasia of the abdominal aorta. An infrarenal IVC filter is in place. The inferior vena cava and iliac veins below the stent appear expanded and hyperdense with surrounding infiltration. This suggests thrombosis. Bowel: There is no bowel obstruction. The appendix is not identified and reported surgically absent. Peritoneum: There is no intraperitoneal free air or abdominal ascites. There is a fat-containing umbilical hernia. Lymphadenopathy: None. Pelvic viscera: The bladder is decompressed around a suprapubic catheter. The bladder wall appears thickened and there is surrounding inflammation. The prostate gland is surgically absent. There is nonspecific presacral edema. Skeletal structures: The skeletal structures are osteopenic. Moderate lumbosacral spondylosis is observed. No lytic or blastic lesions are seen. IMPRESSION: 1. The inferior vena cava and iliac arteries appear hyperdense and are distended below the IVC filter with mild surrounding infiltration. These findings are highly suspicious for extensive pelvic deep venous thrombosis. Consider sonographic correlation. 2. The kidneys demonstrate cortical atrophy and are without hydronephrosis. 3. The bladder is decompressed around a suprapubic catheter. The wall appears thickened and there is surrounding infiltration. Correlate with urinalysis. 4. Mild cardiomegaly and emphysema. 5. Cholelithiasis. 6. Additional findings as above. ACT 112: Negative or not required by law. Electronically signed by: Elver Xiao M.D. 07/26/2022 12:55 PM Hospital Course (1) Bradycardia: (2) History of CVA (cerebrovascular accident): (3) BASIM (acute kidney injury): (4) Left leg DVT: (5) Polycythemia: (6) CLL (chronic lymphocytic leukemia): (7) Kaushal filter in place: (8) Leukocytosis: (9) Hypertension: (10) Dyslipidemia: Plan Patient was awake and alert this morning upon initially exam. Later in the morning as reported by both nursing and roommate, pt was talking with the nursing and then collapsed to the ground. Was found to be bradycardic. Code Blue was called, but pt was DNR/DNI. Went from bradycardic on monitor to asystole and pt was pronounced. Left leg DVT, acute 1 week of worsening left leg swelling and pain with weightbearing, found to have popliteal DVT with extension into the calf Patient has history of CLL and polycythemia. Increased coagulation risk 2/2 polycythemia was on Heparin GTT BASIM (acute kidney injury) Creatinine baseline appears approximately 1.4, admitting creatinine 2.36 Patient usually avoids around 3000 mL overnight (does this because he drains his suprapubic bag once and usually almost fell again by morning) Last night patient with significantly decreased output, only 200 cc and elevated creatinine suggestive of ARF CT-A/P:1. The inferior vena cava and iliac arteries appear hyperdense and are distended below the IVC filter with mild surrounding infiltration. These findings are highly suspicious for extensive pelvic deep venous thrombosis. Consider sonographic correlation.2. The kidneys demonstrate cortical atrophy and are without hydronephrosis.3. The bladder is decompressed around a suprapubic catheter. The wall appears thickened and there is surrounding infiltration. Correlate with urinalysis. 4. Mild cardiomegaly and emphysema.5. Cholelithiasis.6. Additional findings as above. IVC filter is below the level of the renal artery. Bladder is decompressed, no signs of obstruction. UA is pending. No renal enhancement. Unclear etiology of BASIM/ARF Nephrology consulted, anticoagulated for his clot as above, and received IVF. [place] filter in place: Patient reports this was placed while he was septic in the ICU from a urinary tract infection and had complications with both clots and bleeding due to sepsis. Reports that outside of this he has never had any issues with bleeding or anemia. Patient with DVT as noted above, anticoagulation started. Risk of bleeding discussed with patient. CLL (chronic lymphocytic leukemia): WBC 60.3, ANC 16, hemoglobin 13 Plt 253 Discussed with hematology/oncology and patient's outpatient oncologist. WBC is reasonable for patient, has not been requiring treatment and is unlikely to contribute significantly to viscosity at this level. Polycythemia: Hemoglobin 13 on admission hydroxyurea was continued With increased risk for clots, being treated for DVT as above H/O radical prostatectomy: With residual scar tissue and suprapubic catheter in place Suprapubic catheter draining light yellow urine, decreased urine output and BASIM/ARF as noted Hypertension: Lisinopril held for ARF Amlodipine temporarily held for mild hypotension History of CVA (cerebrovascular accident): History of CVA with dysarthria and right lower extremity weakness at presentation. Was on Plavix monotherapy. Total Time Total Time Spent Total Time Spent (In Minutes): 45 Discharge Plan Discharge Items Patient Disposition: Other Date/Time: 07/27/22 09:29 Supervising Physician Co-Signing Physician Notes Attending attestation Pt seen and examined in concert with Burton Ram. In agreement with the documented findings as noted in the resident documentation with any exceptions or additions as noted here. Time of evaluation during code blue following LOC as noted above. On examination, c/w examination documented by resident - no audible heart sounds, unresponsive to stimuli, visible contusion/abrasion from fall to ground following sudden LOC during conversation as reported by nursing and roommate. Called and updated spouse, Dara, who would be meeting up with Actuarial Science Professor at hospital shortly following code blue. Else see resident documentation as noted. Total attending physician time spent on this patient's care on the day of evaluation: 45 minutes.
[2022-07-27] MEDS ORDERED: HYDROXYUREA 500 MG CAP PO SCH (11:30)
[2022-07-27] MEDS ORDERED: amLODIPine BESYLATE 5 MG TAB PO SCH (21:00)
--- NOTE | 2022-07-31 13:29 | Coding Query ---
CODING QUERY To promote full compliance with coding requirements relating to patient care, provider participation is requested in all cases of systems test technician uncertainty. Please assist us with the question(s) below: Coding Question(s): The Discharge Summary documents, "Went from bradycardic on monitor to asystole and pt was pronounced". Please specify, in your clinical opinion, the most likely cause of asystole: ( ) most likely caused by bradycardia/cardiac condition ( ) most likely caused by DVT ( ) most likely caused by Other: Please Specify (x ) Unknown cause - some concern for embolisation of DVT vs. sudden cardiac event Physician's Response(s): Thank you Muna Albarado Principal Diagnosis: "that condition established after study, to be chiefly responsible for occasioning the admission of the patient to the hospital for care." Co-Existing Principal Diagnosis: "when two or more diagnoses equally meet the criteria for principal diagnosis as determined by the circumstances of admission, diagnostic work up, and/or therapy provided, and the Alphabetic Index, Tabular List, or another coding guideline does not provide sequencing direction, any one of the diagnoses may be sequenced first." "When the physician has documented what appears to be a current diagnosis in the body of the record, but has not included the diagnosis in the final diagnostic statement, the physician should be asked whether the diagnosis should be added." ([facility] 2 QTR90. p3-4) LING
--- NOTE | 2022-07-31 13:35 | Coding Query ---
CODING QUERY To promote full compliance with coding requirements relating to patient care, provider participation is requested in all cases of dynamometer repairer uncertainty. Please assist us with the question(s) below: Coding Question(s): The Discharge Summary documents, "On examination, c/w examination documented by resident - no audible heart sounds, unresponsive to stimuli, visible contusion/abrasion from fall to ground following sudden LOC during conversation as reported by nursing and roommate.". Please specify the location of the visible contusion/abrasion: ( x ) visible contusion/abrasion at specified site: Please Specify____left occiput ( ) visible contusion/abrasion at unknown/unspecified site ( ) Other: Please Specify Physician's Response(s): Thank you Muna Albarado Principal Diagnosis: "that condition established after study, to be chiefly responsible for occasioning the admission of the patient to the hospital for care." Co-Existing Principal Diagnosis: "when two or more diagnoses equally meet the criteria for principal diagnosis as determined by the circumstances of admission, diagnostic work up, and/or therapy provided, and the Alphabetic Index, Tabular List, or another coding guideline does not provide sequencing direction, any one of the diagnoses may be sequenced first." "When the physician has documented what appears to be a current diagnosis in the body of the record, but has not included the diagnosis in the final diagnostic statement, the physician should be asked whether the diagnosis should be added." ([facility] 2 QTR90. p3-4) LING
== END 2022-07-27 10:58 | disposition expired | DRG 300 ==
LOC: ED 08:52 → SUATTDRO 12:38 → 2N 12:38